=== PATIENT | male | born 1960 | race Caucasian/White ===

== ENCOUNTER 2016-12-29 02:57 | Inpatient (IN) ==
--- NOTE | 2016-12-29 03:51 | PROVIDER DOCUMENTATION ---
HPI-General Adult - General Stated Complaint: weakness Time Seen by Provider: 12/29/16 03:28 Source: patient, EMS Unable to obtain history due to:: other (gives non commital, or joking answers, or does not answer questions) Allergies/Adverse Reactions: Patient Allergies Allergy/AdvReac Type Severity Reaction Status Date / Time No Known Allergies Allergy Verified 12/29/16 04:58 Home Medications: Home Medication List Medication Instructions Recorded Confirmed Last Taken Type ATORVAstatin [Lipitor] 40 mg PO QHS 12/29/16 12/29/16 12/28/16 History Albuterol Sulfate [Proair Hfa] 1 puff INH DAILY 12/29/16 12/29/16 12/28/16 History Amlodipine Besylate 5 mg PO DAILY 12/29/16 12/29/16 12/28/16 History Glimepiride 8 mg PO DAILY 12/29/16 12/29/16 12/28/16 History Losartan [Cozaar] 100 mg PO DAILY 12/29/16 12/29/16 12/28/16 History Meloxicam 15 mg PO DAILY 12/29/16 12/29/16 12/28/16 History Metformin [Glucophage] 1,000 mg PO BID 12/29/16 12/29/16 12/28/16 History Omeprazole 20 mg PO DAILY 12/29/16 12/29/16 12/28/16 History - History of Present Illness -Gen Adult Nature of Presenting Problems: brought in by EMS, they give hx that had been seen in [facility] ED, dx with pneumonia, was D/C, now wanted to come here. Pt says that was told had a virus, was discharged. Cannot get any more info from him. Have also talked to ED @ [place]. Was seen there yest, his sats were in 80's ther, but CXR did not show pneumonia, CT head was NL, was dx with COPD flare, albuterol refilled, told to see PCP Location of Pain/Injury: reports: none Quality of Pain: reports: none Severity: reports: severe Onset/Duration: reports: unsure (pt does not answer this question) Timing: reports: still present Modifying Factors: improves with: other (unable to determine) Associated Symptoms: reports: other (does not answer questions) Recently seen or treated by another doctor?: Yes Review of Systems - Adult - REVIEW OF SYSTEMS - ADULT ROS:: unobtainable per condition Constitutional: reports: no symptoms reported Respiratory: reports: see HPI Past History - Adult - PAST MEDICAL HISTORY-ADULT Review of Records: reports: Medications Reviewed Physical Exam-General - PHYSICAL EXAM-ADULT Initial Vital Signs Reviewed: Yes - CONSTITUTIONAL General Appearance: other (awake, but seems to be altered/somulent) - EYES Eyes: PERRL/EOMI, pink conjunctivae - HEAD, EARS, NOSE, MOUTH & THROAT HENMT: moist mucous membranes, normal ENT inspection, pharynx normal - NECK Neck: supple - RESPIRATORY Respiratory: other (decreased airflow) - CARDIOVASCULAR Cardiovascular: regular rate, rhythm - GASTROINTESTINAL (ABDOMEN) Abdominal Exam: non tender, soft - MUSCULOSKELETAL Back Exam: normal inspection, no CVA tenderness, no vertebral tenderness Extremity: normal range of motion, no pedal edema - SKIN Integumentary: normal color, normal turgor, warm/dry - NEUROLOGIC Neurologic: grossly normal - PSYCHIATRIC Psych/Mental Status: other (somulent) Progress - PLAN OF CARE/RESULTS Progress/Plan/Lab Results: Orders Category Date Time Status [facility] [place]. NRS Communication Order DIRECTED Care 12/29/16 03:38 Ordered CHEST-1 VIEW [RAD] Stat Exams 12/29/16 03:38 Ordered ABG [RESP] Stat Lab 12/29/16 03:38 Ordered BLOOD CULTURE [BLDCUL] Stat Lab 12/29/16 03:38 Uncollected CBC WITH DIFF [HEME] Stat Lab 12/29/16 03:38 Uncollected COMPREHENSIVE METABOLIC PANEL [CHEM] Stat Lab 12/29/16 03:38 Uncollected ETOH [ALCOHOL BLOOD] Stat Lab 12/29/16 03:38 Uncollected LACTATE, PLASMA [CHEM] Stat Lab 12/29/16 03:38 Uncollected URINALYSIS W/POSS RFLX CULT [URINALYSIS] Stat Lab 12/29/16 03:38 Uncollected URINE DRUG SCREEN Stat Lab 12/29/16 03:38 Uncollected EKG [EKG] Stat Ther 12/29/16 03:38 Ordered Result Diagrams: 12/29/16 03:30 12/29/16 03:30 - EKG 1 EKG Interpretation (*Must complete 3 of following elements*): Normal Rate: 77 Rhythm: NSR QRS: normal [place] Interval: normal ST Wave: normal - CONSULTS/PCP/HOSPITALIST Notification #1 *Consult/PCP/Hospitalist*: Stephanie/Dr. Scott Time Discussed: 07:49 Consult Disposition: Admit - CHANGE OF SHIFT REPORT (ED Provider) Report Given and Care Transferred to:: [facility] Time of Transfer: 06:18 Departure - Departure Date of Disposition Decision: 12/29/16 Time of Disposition Decision: 07:50 DIAGNOSIS: Respiratory failure, CO2 retention Disposition: ADMITTED INPATIENT 09 Certified Medical Emergency: Emergent Condition: Serious Referrals and Follow-Ups: None,PCP [Primary Care Provider] - - Critical Care Note This patient required my direct & personal management of CC.: Yes Total Time (mins): 35 Critical Care Statement: This patient required my direct personal management to treat or rule out processes, the absence of which, could potentiallly result in sudden, clinically significant life or limb threatening deterioration.
[2016-12-29 04:00] LABS: ALLEN TEST YES; BE 7.6 mmoll (-3.0-3.0); BLOOD TYPE ARTERIAL; DRAW SITE R RADIAL; METHB 0.7 % (0.0-1.5); MODALITY PRB; O2(CT) 20.1 mL/dL (15.0-23.0); PCO2(98.6) 103 mmHg (35-45); PO2(98.6) 87 mmHg (60-100); SAMPLE BLOOD; SAO2 96.4 % (95.0-100.0); THB 15.2 g/dL (11.5-17.4)
[2016-12-29 04:05] LABS: MANUAL DIFF NEEDED? NO
[2016-12-29 04:11] LABS: BASO% 0.2 % (0.0-0.8); EOS# 0.03 X1000 (0.0-0.7); EOS% 0.3 % (0.0-10.0); HEMATOCRIT 48.2 % (42.0-52.0); HEMOGLOBIN 15.2 g/dL (14.0-18.0); IMM GRAN# 0.03 X1000 (0.0-0.04); IMM GRAN% 0.3 % (0.0-0.5); LYMPH% 24.6 % (20.5-51.1); MCH 28.1 PG (27-31); MCHC 31.5 g/dL (33-37); MCV 89.3 FL (81-99); MONO# 0.68 X1000 (0.11-0.59); MONO% 7.6 % (1.7-9.3); MPV 10.6 FL (7.4-10.4); PLT 215 X1000 (130-400)
[2016-12-29 04:35] LABS: AGAP 8; ALBUMIN 3.9 g/dL (3.5-5.0); ALKALINE PHOSPHATASE 55 U/L (32-122); BUN 13 mg/dL (8-22); CALCIUM 8.4 mg/dL (8.8-10.2); CHLORIDE 96 mmol/L (98-107); COSMO 285; GOT 12 U/L (10-34); GPT 10 U/L (10-44); POTASSIUM 4.2 mmol/L (3.5-5.1); SODIUM 140 mmol/L (136-145); TCO2 36 mmol/L (25-35); TOTAL BILIRUBIN 0.32 mg/dL (0.20-1.00); TOTAL PROTEIN 7.3 g/dL (6.3-8.3)
[2016-12-29] MEDS ORDERED: LEVAQUIN 750 MG/D5W 750 MG/150 ML IVPB IV ONE (06:27)
--- NOTE | 2016-12-29 06:45 | Diag Imaging Result Doc PS360 ---
EXAM: CHEST-1 VIEW HISTORY: SOB TECHNIQUE: Portable AP COMPARISON: None. FINDINGS: Poor inspiratory effort. The heart isn't enlarged. Mild central vascular prominence. No consolidation. No pleural effusions identified. IMPRESSION: Cardiomegaly with mild central vascular prominence. Follow-up PA and lateral recommended. Electronically signed by Eber Ayala 12/29/2016 6:43 AM
[2016-12-29 07:49] LABS: ALLEN TEST YES; BE 6.9 mmoll (-3.0-3.0); BLOOD TYPE ARTERIAL; DRAW SITE R RADIAL; METHB 1.1 % (0.0-1.5); PO2(98.6) 59 mmHg (60-100); SAMPLE BLOOD; SAO2 90.3 % (95.0-100.0); THB 15.4 g/dL (11.5-17.4); pH(98.6) 7.21 (7.35-7.45)
[2016-12-29] MEDS ORDERED: SOLU-MEDROL IV ONE (07:50)
[2016-12-29] MEDS ORDERED: PULMICORT INH ONE (07:50)
[2016-12-29] MEDS ORDERED: DUONEB (A & A) INH ONE (07:50)
[2016-12-29 07:53] LABS: URINE CULTURE NEEDED? NO; URINE MICRO REVIEW NEEDED? NO; URINE SOURCE CATH
[2016-12-29 07:56] LABS: PCO2(98.6) 98 mmHg (35-45)
[2016-12-29 07:57] LABS: BILIRUBIN URINE SMALL (NEGATIVE); BLOOD URINE NEGATIVE (NEGATIVE); COLOR YELLOW; GLUCOSE URINE 1000 mg/dL (NEGATIVE); LEUKOCYTES URINE NEGATIVE (NEGATIVE); NITRITE URINE NEGATIVE (NEGATIVE); PH URINE 5.5; PROTEIN URINE 30 mg/dL (NEGATIVE); SP GRAVITY URINE 1.028; TURBIDITY URINE CLEAR (CLEAR); UROBILINOGEN URINE 3 mg/dL (NORMAL)
[2016-12-29 07:57] LABS: MODALITY BI PAP
[2016-12-29 07:58] LABS: UR EPITHELIAL CELLS <10 /HPF (<10); URINE BACTERIA NEGATIVE /HPF; URINE RBC <10 /HPF (<10); URINE WBC <10 /HPF (<10)
[2016-12-29] MEDS ORDERED: PULMICORT ONE (08:03)
[2016-12-29 08:14] LABS: UR AMPHETAMINES MT NONE DETECTED (NONE DETECT); UR BARBITUATES MT NONE DETECTED (NONE DETECT); UR BENZODIAZ MT NONE DETECTED (NONE DETECT); UR CANNABIS MEDTOX NONE DETECTED (NONE DETECT); UR COCAINE MT NONE DETECTED (NONE DETECT); UR METHADONE MEDTOX NONE DETECTED (NONE DETECT); UR OPIATES MT NONE DETECTED (NONE DETECT); UR OXYCODONE MEDTOX NONE DETECTED (NONE DETECT); UR PCP MEDTOX NONE DETECTED (NONE DETECT)
[2016-12-29] MEDS ORDERED: ZOFRAN IV PRN (08:22)
[2016-12-29] MEDS ORDERED: TYLENOL PO PRN (08:22)
--- NOTE | 2016-12-29 08:49 | HISTORY AND PHYSICAL ---
HISTORY OF PRESENT ILLNESS: This is a 56-year-old. He actually lives in [place]. Apparently, he has been feeling weak and there was some confusion, short of breath. Went to [place] emergency room and they told him he had some fluid, a little fluid on his lungs. They did a CT of his head and it was unremarkable. He went home. This was on Friday, the day before this admission. Came early this morning. He felt like he was going to pass out. He was very weak. In the emergency room, found a CO2 above 100 and so really CO2 retention and respiratory failure. PAST MEDICAL HISTORY: 1. Long history of COPD. He quit smoking years ago. He is on 3 L nasal cannula at home for chronic hypoxia. 2. Hypertension. 3. Hyperlipidemia. 4. Diabetes mellitus type 2. 5. Gastroesophageal reflux disease. SOCIAL HISTORY: He quit drinking. He quit alcohol he states years ago. FAMILY HISTORY: Mother, cancer, not sure what type. REVIEW OF SYSTEMS: He had a BiPAP on and was working to breathe so we got most of the history from his . She did not note any fever or chills. He did not either. No chest pain. No productive cough. No gross hematuria or dysuria. No new focal neurologic changes. PHYSICAL EXAMINATION: General: Awake. He is alert. Answering questions appropriately. at the bedside. VITAL SIGNS: Pulse 88, respirations 16, blood pressure 130/82. CVP appears less than 6 cm. LUNGS: With decreased breath sounds at both bases. Otherwise moving air. No active wheezing. He does have prolonged expiratory phase, about 1.5 to 1 to inspiratory phase. ABDOMEN: Soft, nontender. Did not appreciate any organomegaly. EXTREMITIES: Trace edema in the ankles. RESPIRATORY: O2 stat at present 93%. LAB: White count 8940, hematocrit 48, platelet count 215,000. Sodium 140, potassium 4.2, chloride 96, bicarb 36, BUN 13, creatinine 0.9, calculated osmolality 285, calcium 8.4. Liver functions unremarkable. Urine drug screen was unremarkable. Urinalysis negative. ABGs: PH was 7.21, pCO2 98, PO2 was 59, O2 saturation 90%. This is on BiPAP. He is getting 60% FiO2, BiPAP set at 20/10. This is the 2nd gases. His gases showed a CO2 that was greater than 100 so this is after BiPAP was started. Chest x-ray, cardiomegaly with mild central vascular prominence. ASSESSMENT AND PLAN: 1. Chronic obstructive pulmonary disease with hypoxia and hypercarbia. We will continue BiPAP. We asked him about ventilator assistance and he says if we need to, he wants to go on a ventilator. I will move him up to CIC. We will give him some moderate normal saline, run that at about 65 mL an hour. I do not see any sign of infection at this point. We will put him on some guaifenesin 1200 mg twice a day just to maybe help with secretions. I will go ahead and put him on some Solu-Medrol as well. We will give him 60 mg of Solu-Medrol every 8 hours. We will use some bronchodilators, I think DuoNebs at present. 2. History of hypertension. We will watch his blood pressure. Continue his losartan 100 mg a day, amlodipine 5 mg a day. 3. Diabetes mellitus type 2. We will check patterned sugars. Continue his Glucophage and he takes a 1000 mg twice a day. 4. Hypercholesterolemia. Continue his Lipitor. 5. History of gastroesophageal reflux. 6. Note, I think in addition, he most likely has obstructive apnea and hypoventilation syndrome due to his size. We will ask pulmonary to assist in trying to improve his air exchange and gas exchange. cc: Michael Scott MD
[2016-12-29] MEDS ORDERED: AMARYL PO SCH (09:00)
[2016-12-29] MEDS: MUCINEX PO SCH ×2 (10:01→20:17)
[2016-12-29] MEDS: NORVASC PO SCH (10:01)
[2016-12-29] MEDS: LOVENOX SUBQ SCH (10:01)
[2016-12-29] MEDS: COZAAR PO SCH (10:02)
[2016-12-29] MEDS: ROCEPHIN 2 GM/NS 2 GM/50 ML IVPB IV SCH (10:02)
[2016-12-29] MEDS: MOBIC PO SCH (10:02)
[2016-12-29] MEDS: DUONEB (A & A) INH SCH ×4 (10:50→23:48)
[2016-12-29] MEDS: HUMULIN R SUBQ SCH ×3 (10:56→20:18)
[2016-12-29 11:37] LABS: ALLEN TEST YES; BE 4.8 mmoll (-3.0-3.0); BLOOD TYPE ARTERIAL; DRAW SITE R RADIAL; METHB 0.9 % (0.0-1.5); O2(CT) 20.6 mL/dL (15.0-23.0); PO2(98.6) 73 mmHg (60-100); SAMPLE BLOOD; SAO2 94.8 % (95.0-100.0); THB 15.8 g/dL (11.5-17.4); pH(98.6) 7.25 (7.35-7.45)
[2016-12-29 11:39] LABS: MODALITY BI PAP; PCO2(98.6) 81 mmHg (35-45)
[2016-12-29] MEDS: SOLU-MEDROL IV SCH ×2 (14:03→20:18)
--- NOTE | 2016-12-29 16:38 | CONSULTATION ---
DATE OF CONSULTATION: 12/29/2016 REFERRING PHYSICIAN: Dr. Scott. CHIEF COMPLAINT: Shortness of breath. HISTORY OF PRESENT ILLNESS: This is a 56-year-old male with a past medical history of COPD, hypertension, hyperlipidemia, diabetes, and GERD, that presented to the hospital with complaints of confusion, shortness of breath, and weakness. He was admitted for his CO2 retention and respiratory failure. His initial CO2 levels were over 100. REVIEW OF SYSTEMS: A 10-point review of systems was conducted. Pertinent noted on the HPI, otherwise noncontributory. PAST MEDICAL HISTORY: As mentioned in the HPI, otherwise noncontributory. SOCIAL HISTORY: Patient no longer drinks alcohol. He quit a year ago. No documented history of tobacco or illicit drug use. FAMILY HISTORY: Unremarkable. ALLERGIES: No known drug allergies. ACTIVE MEDICATIONS: Tylenol, Mucomyst, DuoNeb, Norvasc, Lipitor, Pulmicort, Rocephin, Lovenox, Amaryl, Mucinex, Humulin R, Cozaar, Mobic, Solu-Medrol, Zofran, Protonix. PHYSICAL EXAMINATION: Vital Signs: Blood pressure 146/92, heart rate 82, respiratory rate 15, oxygen saturation 93%. General: Awake and alert. No acute distress noted. HEENT: Normocephalic, atraumatic. PERRL. Cardiovascular: Regular rate and rhythm. S1, S2 present. Chest: Reduced entry. Abdomen: Soft, nontender. Neurologic: No focal deficits. LABS AND INVESTIGATIONS: WBC 8.94, RBC 5.4, hemoglobin 15.2, hematocrit 48.2, platelet count 215,000. Sodium 140, potassium 4.2, chloride 96, CO2 36, anion gap 8, BUN 13, creatinine 0.9, glucose is 192. Blood gas reveals a pH 7.21, pCO2 of 98, PO2 of 59, HC03 of 30, oxygen saturation 90%. Chest x-ray shows cardiomegaly. ASSESSMENT AND PLAN: This is 56-year-old male with a past medical history as mentioned in the HPI, that presented to the hospital with shortness of breath and weakness. He is admitted for his hypoxic, hypercarbic respiratory failure secondary to chronic obstructive pulmonary disease exacerbation. Continue with IV steroids, BiPAP therapy, broad-spectrum antibiotics, GI and DVT prophylaxis, pattern fingerstick, sliding scale insulin. Further recommendations pending diagnostic studies. Thank you for the courtesy of this consult. Dictated by ALLYSON Mancilla for Efren Cisneros MD cc: ALLYSON Mancilla MD
[2016-12-29] MEDS: MUCOMYST 20% INH SCH (19:46)
[2016-12-29] MEDS: PULMICORT INH SCH (19:46)
[2016-12-29] MEDS: LIPITOR PO SCH (20:18)
[2016-12-30] MEDS: SOLU-MEDROL IV SCH ×4 (03:12→20:33)
[2016-12-30] MEDS: DUONEB (A & A) INH SCH ×6 (03:49→22:49)
[2016-12-30 04:25] LABS: ALLEN TEST YES; BE 9.7 mmoll (-3.0-3.0); BLOOD TYPE ARTERIAL; DRAW SITE R RADIAL; METHB 0.9 % (0.0-1.5); O2(CT) 20.8 mL/dL (15.0-23.0); PO2(98.6) 98 mmHg (60-100); SAMPLE BLOOD; SAO2 97.3 % (95.0-100.0); THB 15.4 g/dL (11.5-17.4); pH(98.6) 7.35 (7.35-7.45)
[2016-12-30 04:31] LABS: MODALITY BI PAP; PCO2(98.6) 70 mmHg (35-45)
[2016-12-30] MEDS ORDERED: CALMOSEPTINE OINTMENT TOP PRN (04:56)
[2016-12-30 05:15] LABS: MANUAL DIFF NEEDED? NO
[2016-12-30 05:19] LABS: BASO% 0.1 % (0.0-0.8); HEMATOCRIT 46.6 % (42.0-52.0); HEMOGLOBIN 14.8 g/dL (14.0-18.0); IMM GRAN# 0.03 X1000 (0.0-0.04); IMM GRAN% 0.3 % (0.0-0.5); LYMPH# 1.24 X1000 (1.2-3.4); LYMPH% 14.3 % (20.5-51.1); MCH 27.9 PG (27-31); MCHC 31.8 g/dL (33-37); MCV 87.8 FL (81-99); MONO# 0.44 X1000 (0.11-0.59); MONO% 5.1 % (1.7-9.3); MPV 10.6 FL (7.4-10.4); NEUT% 80.2 % (42.2-75.2); PLT 233 X1000 (130-400); RBC 5.31 XMIL (4.7-6.1)
[2016-12-30 05:39] LABS: HEMOGLOBIN A1C 9.9 % (4.8-6.0)
[2016-12-30 05:42] LABS: CALCIUM 8.8 mg/dL (8.8-10.2); POTASSIUM 5.1 mmol/L (3.5-5.1); TOTAL BILIRUBIN 0.29 mg/dL (0.20-1.00); TOTAL PROTEIN 7.5 g/dL (6.3-8.3)
[2016-12-30 06:20] LABS: FREE T4 0.99 ng/dL (0.93-1.70)
[2016-12-30] MEDS: PROTONIX PO SCH (06:33)
[2016-12-30] MEDS: HUMULIN R SUBQ SCH ×4 (06:33→20:37)
--- NOTE | 2016-12-30 06:49 | EKG Report ---
Test Performed on : 12/29/2016 05:25:51 AM Test Reason : SOB Blood Pressure : / mmHG Vent. Rate : 077 BPM Atrial Rate : 077 BPM P-R Int : 152 ms QRS Dur : 100 ms QT Int : 376 ms P-R-T Axes : 019 016 019 degrees QTc Int : 425 ms Normal sinus rhythm. Normal ECG No previous ECGs available Unconfirmed Result
--- NOTE | 2016-12-30 07:12 | Diag Imaging Result Doc PS360 ---
EXAM: CHEST-PORTABLE HISTORY: short of breath TECHNIQUE: Erect AP portable at zero 555 COMMENT: The lungs are slightly better expanded than on 12/29/2016. There continues to be minimal subsegmental atelectasis in both bases. There is cardiomegaly. IMPRESSION: Minimal bibasilar atelectasis. Cardiomegaly. Electronically signed by Cesar Alegria 12/30/2016 7:10 AM
[2016-12-30] MEDS: PULMICORT INH SCH ×2 (07:30→19:19)
[2016-12-30] MEDS: MUCOMYST 20% INH SCH ×2 (07:30→19:19)
--- NOTE | 2016-12-30 08:21 | PROGRESS NOTE ---
DATE: 12/30/2016 SUBJECTIVE: Mr. Chadwick is breathing much better. He used the BiPAP through the night. OBJECTIVE: Vital signs: He remains afebrile, temp 98.6 degrees, pulse 80, respirations 17, blood pressure 139/69. Weight 354 this morning. HEENT: Pupils are equal, round. Lungs: Clear in all lung regalado. Cardiovascular: Regular rhythm and rate without murmur or S3. : Urine output 3200 mL. LAB: White count 8,650, hematocrit 46, platelet count 233,000. Sodium 137, potassium 5.1, chloride 94, BUN 24, creatinine 1.4, blood sugar 301, 265. Blood gases this morning, pH improved to 7.35, pCO2 was 70, PO2 was 98, O2 saturation 97%. Chest x-ray from this morning, minimal bibasilar atelectasis, cardiomegaly. ASSESSMENT AND PLAN: 1. This is a 56-year-old with shortness of breath, morbid obesity, suspect hypoventilation syndrome, hypercarbic respiratory failure with underlying chronic obstructive pulmonary disease and chronic obstructive pulmonary disease exacerbation. It appears to be improving. Gas exchange has definitely improved. We need to see if he needs CPAP or BiPAP at home. Ask pulmonary to assist with this. I do not see any active infection at this point. 2. Morbid obesity. Needs to pursue weight reduction, low carb diet. 3. Hypertension. Blood pressure controlled. 4. Diabetes mellitus type 2. Sugar is running a little high so make some adjustments in his insulin and try and increase his activity. cc: Michael Scott MD
[2016-12-30] MEDS: NORVASC PO SCH (08:51)
[2016-12-30] MEDS: ROCEPHIN 2 GM/NS 2 GM/50 ML IVPB IV SCH (08:51)
[2016-12-30] MEDS: MOBIC PO SCH (08:51)
[2016-12-30] MEDS: AMARYL PO SCH (08:51)
[2016-12-30] MEDS: LOVENOX SUBQ SCH (08:52)
[2016-12-30] MEDS: MUCINEX PO SCH ×2 (09:33→20:33)
[2016-12-30] MEDS: COZAAR PO SCH (09:52)
[2016-12-30] MEDS: LIPITOR PO SCH (20:33)
[2016-12-31] MEDS: DUONEB (A & A) INH SCH ×6 (02:50→22:40)
[2016-12-31] MEDS: SOLU-MEDROL IV SCH ×3 (04:34→20:38)
[2016-12-31 04:58] LABS: ALLEN TEST YES; BE 8.3 mmoll (-3.0-3.0); BLOOD TYPE ARTERIAL; DRAW SITE R RADIAL; METHB 0.9 % (0.0-1.5); O2(CT) 20.4 mL/dL (15.0-23.0); PO2(98.6) 115 mmHg (60-100); SAMPLE BLOOD; pH(98.6) 7.32 (7.35-7.45)
[2016-12-31 05:00] LABS: MODALITY BI PAP; PCO2(98.6) 73 mmHg (35-45)
[2016-12-31] MEDS: HUMULIN R SUBQ SCH ×5 (06:24→20:38)
[2016-12-31] MEDS: PROTONIX PO SCH (06:24)
[2016-12-31] MEDS: MUCOMYST 20% INH SCH ×2 (07:06→19:15)
[2016-12-31] MEDS: PULMICORT INH SCH ×2 (07:07→19:15)
[2016-12-31] MEDS: NORVASC PO SCH (08:53)
[2016-12-31] MEDS: AMARYL PO SCH (08:53)
[2016-12-31] MEDS: LOVENOX SUBQ SCH (08:54)
[2016-12-31] MEDS: COZAAR PO SCH (08:54)
[2016-12-31] MEDS: MUCINEX PO SCH ×2 (08:54→20:37)
[2016-12-31] MEDS: MOBIC PO SCH (08:54)
[2016-12-31] MEDS: ROCEPHIN 2 GM/NS 2 GM/50 ML IVPB IV SCH (08:54)
--- NOTE | 2016-12-31 09:57 | PROGRESS NOTE ---
DATE: 12/31/2016 SUBJECTIVE: Mr. Cahdwick is breathing much better. He does feel better. He did use the BiPAP during the night some. PHYSICAL EXAMINATION: Vital Signs: Temperature 98 degrees, pulse 72, respirations 18, blood pressure 115/79. HEENT: Pupils are equal and round. Lungs: Are clear anterolateral. Cardiovascular Examination: Regular rhythm and rate without murmur or S3. Abdomen: Soft. Skin: Is warm and dry. Is and Os: Urine output 440 mL. LABORATORY DATA: Blood sugar 340, 256. ASSESSMENT AND PLAN: 1. A 56-year-old with shortness of breath, morbid obesity, suspect hypoventilation syndrome, obstructive apnea, hypercarbic respiratory failure, and underlying chronic obstructive pulmonary disease exacerbation. He is on supplemental O2. His blood gases from this morning, pH of 7.32, pCO2 of 73, PO2 is 115, O2 saturation 98%. He does wear BiPAP as needed which is at 60% FiO2, 20/10. Chest x-ray from yesterday, minimal basilar atelectasis. Clinically doing much better. Continue present regimen. 2. Morbid obesity. We discussed the necessity of him losing weight, getting some weight off. 3. Hypertension. Blood pressure well controlled. 4. Osteoarthritis and back pain. He is on the Mobic 15 mg daily. 5. I have him on ceftriaxone 2 g intravenous every 24 hours. I do not see any evidence clinically of pneumonia. We will stop his Rocephin probably tomorrow. He does have atelectasis and I could not rule out under underlying infiltrate but we will stop the Rocephin tomorrow. cc: Michael Scott MD
[2016-12-31] MEDS: HUMULIN 70/30 SUBQ SCH ×2 (11:15→16:17)
[2016-12-31] MEDS: LIPITOR PO SCH (20:38)
[2017-01-01] MEDS: DUONEB (A & A) INH SCH ×6 (03:15→23:00)
[2017-01-01 05:36] LABS: ALLEN TEST YES; BE 8.9 mmoll (-3.0-3.0); BLOOD TYPE ARTERIAL; DRAW SITE R RADIAL; METHB 0.1 % (0.0-1.5); O2(CT) 19.9 mL/dL (15.0-23.0); PO2(98.6) 93 mmHg (60-100); SAMPLE BLOOD; SAO2 98.6 % (95.0-100.0); THB 14.7 g/dL (11.5-17.4); pH(98.6) 7.33 (7.35-7.45)
[2017-01-01 05:37] LABS: MODALITY BI PAP; PCO2(98.6) 72 mmHg (35-45)
[2017-01-01] MEDS: PROTONIX PO SCH (06:43)
[2017-01-01] MEDS: HUMULIN R SUBQ SCH ×4 (06:44→20:57)
[2017-01-01] MEDS: HUMULIN 70/30 SUBQ SCH ×2 (06:44→17:17)
[2017-01-01] MEDS: MUCOMYST 20% INH SCH ×2 (07:05→19:05)
[2017-01-01] MEDS: PULMICORT INH SCH ×2 (07:06→19:05)
[2017-01-01] MEDS: NORVASC PO SCH (09:13)
[2017-01-01] MEDS: MUCINEX PO SCH ×2 (09:13→20:56)
[2017-01-01] MEDS: MOBIC PO SCH (09:13)
[2017-01-01] MEDS: COZAAR PO SCH (09:13)
[2017-01-01] MEDS: AMARYL PO SCH (09:14)
[2017-01-01] MEDS: SOLU-MEDROL IV SCH ×2 (09:14→20:56)
[2017-01-01] MEDS: LOVENOX SUBQ SCH (09:16)
--- NOTE | 2017-01-01 09:26 | PROGRESS NOTE ---
DATE: 01/01/2017 SUBJECTIVE: Mr. Chadwick is feeling better, breathing better. PHYSICAL EXAMINATION: Vital Signs: Temperature 97.7 degrees, pulse 70, respirations 18, blood pressure 121/66. Lungs: Are clear in all lung regalado. Cardiovascular Examination: Regular rhythm and rate without murmur or S3. Abdomen: Soft. Skin: Is warm and dry. Is and Os: Urine output over 5 mL. LABORATORY DATA: Blood sugar 346, 189. Reviewed lab from the 12th, CBC, chemistries. New chemistries today. His blood gases this morning, pH was 7.33, pCO2 of 72, PO2 of 93, O2 saturation 98%. ASSESSMENT AND PLAN: 1. Morbidly obese, hypoventilation syndrome, underlying chronic obstructive pulmonary disease exacerbation. Dr. Cisneros following to see if he is eligible to try and pursue a BiPAP machine at home. Would like to get his CO2 60 or below before he goes home. Making improvement on this gas exchange so continue present treatment. I have decreased his steroids. 2. Morbid obesity. We have discussed this actively, importance of him losing weight, a low carbohydrate diet. 3. Hypertension. Blood pressure controlled. 4. Osteoarthritis and back pain, chronic pain. He is on Mobic. I will stop his antibiotics. 5. Diabetes mellitus. I have started a split dose insulin. I think he is taking a once a day insulin at home. We need to give him instructions on that and titrate. cc: Michael Scott MD
[2017-01-01] MEDS: LIPITOR PO SCH (20:56)
[2017-01-02] MEDS: SOLU-MEDROL IV SCH (00:48)
[2017-01-02] MEDS: DUONEB (A & A) INH SCH ×6 (02:50→23:41)
[2017-01-02 05:01] LABS: ALLEN TEST YES; BE 10.5 mmoll (-3.0-3.0); BLOOD TYPE ARTERIAL; DRAW SITE R RADIAL; METHB 0.7 % (0.0-1.5); O2(CT) 20.6 mL/dL (15.0-23.0); PO2(98.6) 114 mmHg (60-100); SAMPLE BLOOD; SAO2 98.1 % (95.0-100.0); THB 15.2 g/dL (11.5-17.4); pH(98.6) 7.34 (7.35-7.45)
[2017-01-02 05:03] LABS: MODALITY BI PAP; PCO2(98.6) 74 mmHg (35-45)
[2017-01-02] MEDS: HUMULIN 70/30 SUBQ SCH ×2 (06:17→15:38)
[2017-01-02] MEDS: HUMULIN R SUBQ SCH ×4 (06:17→21:05)
[2017-01-02] MEDS: PROTONIX PO SCH (06:17)
[2017-01-02] MEDS: PULMICORT INH SCH ×2 (07:24→19:12)
[2017-01-02] MEDS: MUCOMYST 20% INH SCH ×2 (07:24→19:12)
[2017-01-02] MEDS: MOBIC PO SCH (08:53)
[2017-01-02] MEDS: COZAAR PO SCH (08:53)
[2017-01-02] MEDS: PREDNISONE PO SCH (08:53)
[2017-01-02] MEDS: NORVASC PO SCH (08:53)
[2017-01-02] MEDS: MUCINEX PO SCH ×2 (08:53→21:04)
[2017-01-02] MEDS: LOVENOX SUBQ SCH (08:53)
[2017-01-02] MEDS: AMARYL PO SCH (08:53)
--- NOTE | 2017-01-02 15:13 | PROGRESS NOTE ---
DATE: 01/02/2017 SUBJECTIVE: The patient is awake, alert, and oriented. Answers questions appropriately. No acute event reported. Seen and examined. OBJECTIVE: Vital Signs: Blood pressure 132/66, pulse of 86, respirations 20, temperature 98.4 degrees. Sat of 94% on 4 L nasal cannula. General Appearance: Morbidly obese, white male, in no acute distress. Very talkative. HEENT: Anicteric. Clear conjunctivae. Neck supple. No JVD. No bruit. Cardiovascular: S1, S2. Normal rate and rhythm. No murmur, rubs, or gallops. Pulmonary clear to auscultation bilaterally. GI soft, nontender, nondistended. Normoactive bowel sounds. Musculoskeletal: No clubbing, cyanosis, or edema. His ABG today shows CO2 of 74. ASSESSMENT AND PLAN: This is a 56-year-old morbidly obese, white male, admitted for acute respiratory failure. 1. Acute respiratory failure. It is a combination of chronic obstructive pulmonary disease on top of his morbid obesity and hypoventilation. I discussed with Dr. Cisneros who wants his carbon dioxide at or below 60 before discharging him. This has been hanging around the 70s so far. We will continue BiPAP. 2. Morbid obesity. Education provided. 3. Diabetes, type 2. Continue 70/30 sliding scale insulin. 4. Hypertension. Continue losartan and Norvasc. 5. Gastroesophageal reflux disease. Continue Protonix number. 6. Deep vein thrombosis prophylaxis. The patient is on Lovenox. 7. Hyperlipidemia. Continue Lipitor. 8. CODE STATUS: The patient is a Full Code. His is his surrogate decision maker.
[2017-01-02] MEDS ORDERED: INSULIN PEN NEEDLES ONE (15:36)
[2017-01-02] MEDS: LIPITOR PO SCH (21:04)
[2017-01-03 02:55] LABS: ALLEN TEST YES; BE 9.2 mmoll (-3.0-3.0); BLOOD TYPE ARTERIAL; DRAW SITE R RADIAL; METHB 0.8 % (0.0-1.5); O2(CT) 21.9 mL/dL (15.0-23.0); PO2(98.6) 136 mmHg (60-100); SAMPLE BLOOD; SAO2 98.5 % (95.0-100.0); SRATE 4 BPM; pH(98.6) 7.37 (7.35-7.45)
[2017-01-03 02:56] LABS: MODALITY BI PAP; PCO2(98.6) 65 mmHg (35-45)
[2017-01-03] MEDS: DUONEB (A & A) INH SCH ×6 (03:14→23:21)
[2017-01-03] MEDS: HUMULIN 70/30 SUBQ SCH ×2 (06:25→16:00)
[2017-01-03] MEDS: HUMULIN R SUBQ SCH ×4 (06:25→21:35)
[2017-01-03] MEDS: PROTONIX PO SCH (06:26)
[2017-01-03] MEDS: PULMICORT INH SCH ×2 (07:20→20:03)
[2017-01-03] MEDS: MUCOMYST 20% INH SCH ×2 (07:20→20:03)
[2017-01-03] MEDS: LOVENOX SUBQ SCH (08:37)
[2017-01-03] MEDS: AMARYL PO SCH (08:38)
[2017-01-03] MEDS: MOBIC PO SCH (08:40)
[2017-01-03] MEDS: COZAAR PO SCH (08:40)
[2017-01-03] MEDS: NORVASC PO SCH (08:40)
[2017-01-03] MEDS: PREDNISONE PO SCH (08:40)
[2017-01-03] MEDS: MUCINEX PO SCH ×2 (08:40→21:35)
--- NOTE | 2017-01-03 11:10 | PROGRESS NOTE ---
DATE: 01/03/2017 SUBJECTIVE: The patient is sitting up in the chair comfortably. No fever, no chills. No nausea, vomiting, or diarrhea. Very talkative. OBJECTIVE: Vital Signs: Blood pressure 131/48, pulse of 85, respiration 18, temperature 97.6 degrees, saturations of 93% on 4 L nasal cannula. General Appearance: Morbidly obese white male in no acute distress. HEENT: Anicteric. Clear conjunctivae. Neck: Supple. No JVD. No bruit. Cardiovascular: S1, S2. Normal rate and rhythm. No murmur, rubs, or gallops. Pulmonary: Clear to auscultation bilaterally. GI: Soft, nontender, nondistended. Normoactive bowel sounds musculoskeletal no clubbing, cyanosis, or edema. LABORATORY: His carbon dioxide today is 65. ASSESSMENT AND PLAN: This is a 56-year-old white male, admitted to the hospital for acute respiratory failure. 1. Acute respiratory failure secondary to hypoxia and hypercapnia. The patient is on BiPAP whenever he is asleep. His carbon dioxide is improving. Pulmonology is following. Discussed with Dr. Cisneros yesterday who agrees for the patient to go home if his carbon dioxide less than 60. 2. Diabetes type 2. We will continue 70/[address] her on some oral Amaryl. 3. Hypertension placed on Norvasc and losartan. 4. Hyperlipidemia, continue Lipitor. 5. He has history of chronic obstructive pulmonary disease in acute exacerbation. The patient is still on steroids; Pulmicort nebulizer. Seemed to be doing well. We will continue to monitor the patient in house. 6. Deep vein thrombosis prophylaxis. Patient on Lovenox. 7. Morbid obesity. Education was provided. CODE STATUS: The patient is a full code.
[2017-01-03] MEDS: LIPITOR PO SCH (21:35)
[2017-01-04] MEDS: DUONEB (A & A) INH SCH ×6 (03:36→23:08)
[2017-01-04 04:44] LABS: ALLEN TEST YES; BE 12.6 mmoll (-3.0-3.0); BLOOD TYPE ARTERIAL; DRAW SITE R RADIAL; METHB 0.9 % (0.0-1.5); PO2(98.6) 54 mmHg (60-100); SAMPLE BLOOD; SAO2 90.9 % (95.0-100.0); THB 15.3 g/dL (11.5-17.4); pH(98.6) 7.41 (7.35-7.45)
[2017-01-04 04:47] LABS: MODALITY CANNULA; PCO2(98.6) 64 mmHg (35-45)
[2017-01-04] MEDS: HUMULIN 70/30 SUBQ SCH ×2 (06:51→16:49)
[2017-01-04] MEDS: HUMULIN R SUBQ SCH ×4 (06:51→22:34)
[2017-01-04] MEDS: PROTONIX PO SCH (06:51)
[2017-01-04 07:39] LABS: MANUAL DIFF NEEDED? NO
[2017-01-04 07:44] LABS: BASO% 0.2 % (0.0-0.8); EOS# 0.22 X1000 (0.0-0.7); EOS% 2.1 % (0.0-10.0); HEMATOCRIT 45.2 % (42.0-52.0); IMM GRAN# 0.03 X1000 (0.0-0.04); IMM GRAN% 0.3 % (0.0-0.5); LYMPH% 25.5 % (20.5-51.1); MCH 28.2 PG (27-31); MCHC 33.2 g/dL (33-37); MONO# 1.19 X1000 (0.11-0.59); MONO% 11.2 % (1.7-9.3); MPV 10.7 FL (7.4-10.4); NEUT% 60.7 % (42.2-75.2); PLT 268 X1000 (130-400); RBC 5.32 XMIL (4.7-6.1)
[2017-01-04] MEDS: PULMICORT INH SCH ×2 (07:45→19:45)
[2017-01-04] MEDS: MUCOMYST 20% INH SCH ×2 (07:45→19:45)
[2017-01-04 08:09] LABS: AGAP 10; BUN 13 mg/dL (8-22); CHLORIDE 95 mmol/L (98-107); COSMO 283; SODIUM 139 mmol/L (136-145); TCO2 34 mmol/L (25-35)
[2017-01-04] MEDS: COZAAR PO SCH (09:05)
[2017-01-04] MEDS: NORVASC PO SCH (09:05)
[2017-01-04] MEDS: MUCINEX PO SCH ×2 (09:05→20:30)
[2017-01-04] MEDS: AMARYL PO SCH (09:05)
[2017-01-04] MEDS: PREDNISONE PO SCH (09:05)
[2017-01-04] MEDS: MOBIC PO SCH (09:05)
[2017-01-04] MEDS: LOVENOX SUBQ SCH (09:05)
--- NOTE | 2017-01-04 11:53 | PROGRESS NOTE ---
DATE: 01/04/2017 SUBJECTIVE: The patient is feeling well. He wants to go home. No fever. No chills. No nausea, vomiting, or diarrhea. OBJECTIVE: Vital Signs: Blood pressure 153/63, pulse of 71, respirations 19, temperature 97.9 degrees, saturation of 92% on 4 L. General Appearance: Morbidly obese, white male, in no acute distress. Wants to go home. HEENT: Anicteric. Clear conjunctivae. Neck supple. No JVD. No bruit. Cardiovascular: S1, S2. Normal rate and rhythm. No murmur, rubs, or gallops. Pulmonary: Clear to auscultation bilaterally. GI: Soft, nontender, nondistended. Normoactive bowel sounds. Musculoskeletal: No clubbing, cyanosis, or edema. LABORATORY: White count 10.60, hemoglobin 15.0, hematocrit of 45.2, platelets 268,000. Chemistry: Sodium 139, potassium 4.0, chloride 95, bicarb 34. BUN 13, creatinine 0.7, glucose of 194. Blood gases: CO2 today is 64. ASSESSMENT AND PLAN: This is a 56-year-old white male admitted to the hospital for acute respiratory failure due to hypercapnia and hypoventilation. 1. Acute respiratory failure. Dr. Cisneros wants his carbon dioxide less than 60 before discharging him. We are trying to work to get the patient a BiPAP if possible. It is going to be Friday before we know anything about his BiPAP or status. 2. Diabetes type 2. Continue 70/30 insulin and sliding scale. The patient also is on Amaryl. 3. Hypertension. Continue on Norvasc and losartan. 4. Hyperlipidemia. Continue Lipitor. 5. Deep venous thrombosis prophylaxis, on Lovenox. 6. CODE STATUS: The patient is a FULL CODE
[2017-01-04] MEDS: LIPITOR PO SCH (20:30)
[2017-01-05] MEDS: DUONEB (A & A) INH SCH ×2 (04:05→07:20)
[2017-01-05 05:25] VITALS: BP 147/76
[2017-01-05] MEDS: PROTONIX PO SCH (06:07)
[2017-01-05] MEDS: HUMULIN 70/30 SUBQ SCH (06:07)
[2017-01-05] MEDS: HUMULIN R SUBQ SCH ×2 (06:09→11:30)
[2017-01-05 06:51] LABS: MANUAL DIFF NEEDED? NO
[2017-01-05 06:59] LABS: BASO% 0.1 % (0.0-0.8); EOS# 0.22 X1000 (0.0-0.7); EOS% 2.2 % (0.0-10.0); HEMATOCRIT 43.9 % (42.0-52.0); HEMOGLOBIN 14.4 g/dL (14.0-18.0); IMM GRAN# 0.04 X1000 (0.0-0.04); IMM GRAN% 0.4 % (0.0-0.5); LYMPH# 2.68 X1000 (1.2-3.4); MCH 28.1 PG (27-31); MCHC 32.8 g/dL (33-37); MCV 85.6 FL (81-99); MONO# 1.12 X1000 (0.11-0.59); MONO% 11.3 % (1.7-9.3); MPV 10.5 FL (7.4-10.4); PLT 270 X1000 (130-400); RBC 5.13 XMIL (4.7-6.1)
[2017-01-05] MEDS: MUCOMYST 20% INH SCH (07:20)
[2017-01-05] MEDS: PULMICORT INH SCH (07:21)
[2017-01-05 07:38] LABS: AGAP 11; BUN 15 mg/dL (8-22); CALCIUM 8.9 mg/dL (8.8-10.2); CHLORIDE 95 mmol/L (98-107); COSMO 286; POTASSIUM 4.3 mmol/L (3.5-5.1); SODIUM 139 mmol/L (136-145); TCO2 33 mmol/L (25-35)
[2017-01-05 08:30] LABS: ALLEN TEST YES; BE 12.1 mmoll (-3.0-3.0); BLOOD TYPE ARTERIAL; DRAW SITE R RADIAL; METHB 0.7 % (0.0-1.5); O2(CT) 19.4 mL/dL (15.0-23.0); PO2(98.6) 57 mmHg (60-100); SAMPLE BLOOD; SAO2 91.9 % (95.0-100.0); THB 15.4 g/dL (11.5-17.4); pH(98.6) 7.42 (7.35-7.45)
[2017-01-05 08:31] LABS: MODALITY CANNULA
[2017-01-05 08:33] LABS: PCO2(98.6) 61 mmHg (35-45)
[2017-01-05] MEDS: LOVENOX SUBQ SCH (09:17)
[2017-01-05] MEDS: PREDNISONE PO SCH (09:18)
[2017-01-05] MEDS: AMARYL PO SCH (09:18)
[2017-01-05] MEDS: COZAAR PO SCH (09:18)
[2017-01-05] MEDS: NORVASC PO SCH (09:18)
[2017-01-05] MEDS: MOBIC PO SCH (09:18)
[2017-01-05] MEDS: MUCINEX PO SCH (09:19)
--- NOTE | 2017-01-06 04:16 | DISCHARGE SUMMARY ---
ADMISSION DATE: 12/29/2016 DISCHARGE DATE: 01/05/2017 PRIMARY CARE PHYSICIAN: Not listed. CONSTRUCTION REPRESENTATIVE: Dr. Cisneros. DISCHARGE DIAGNOSES: 1. Acute respiratory failure secondary to hypercapnia, chronic obstructive pulmonary disease, and hypoventilation. 2. Chronic obstructive pulmonary disease. 3. Diabetes type 2. 4. Hypertension. 5. Morbid obesity. DISCHARGE MEDICATIONS: 1. Omeprazole 20 mg p.o. b.i.d. 2. Glucophage 1000 mg b.i.d. 3. Meloxicam 50 mg p.o. daily. 4. Cozaar 100 mg p.o. daily. 5. Amaryl 8 mg p.o. daily. 6. Norvasc 5 mg p.o. daily. 7. Albuterol 1 puff daily. 8. Lipitor 40 mg p.o. at bedtime. 9. Medrol Dosepak 1 pack to take as directed. 10. Insulin 70/30 twice a day. 11. Pulmicort 0.5 mg b.i.d. 12. Home oxygen at 2 L per minute while he is asleep. CONSULTATIONS: Pulmonology was consulted. Dr. Cisneros had been seeing the patient and advised to let the patient go when his CO2 gets in the low 60s or less. SIGNIFICANT LABORATORY AND IMAGING: At discharge, his white count was 9.9, hemoglobin 14.4, hematocrit of 43.9, platelets of 270,000. Chemistry: Sodium 139, potassium 4.3, chloride 95, bicarb 33, BUN 15, creatinine 0.9. His ABG with a pH of 7.42, CO2 of 61. HOSPITAL COURSE: The patient is a 56-year-old, white male, morbidly obese, admitted to the hospital for shortness of breath and some confusion. The patient was found to have elevated carbon dioxide on ABG. The patient was transferred from [facility] to our hospital for pulmonology consult and coverage. The patient is on home oxygen, 3 L at home due to chronic hypoxia. The patient had quit smoking years ago but that had COPD and occasionally he would require hospitalizations because of the COPD exacerbation causing him to retain his carbon dioxide causing confusion. The patient was admitted to our service. We placed him on BiPAP in the CICU for the 1st week. If the patient continues to do well, we will transfer the patient to the floor. We continued to monitor his ABG while he is on BiPAP. His carbon dioxide continued to improve and his oxygen remained the same. He is known to have hypoxia and on 3 L of oxygen at home. We will continue him on 3 L of oxygen at home. He does not need any prescription for oxygen since he has had it. His cultures have remained negative while he was in the hospital. Chest x-ray on admission just showed minimal basilar atelectasis. No consolidations. We have treated the patient as if he was having acute COPD exacerbation with steroid which he seems to be improving. We did not give him any antibiotics because there was no evidence of infections. The patient has been ambulating around without any difficulty. He has oxygen saturation of 96% on 3 L nasal cannula at discharge. PHYSICAL EXAMINATION: Vital Signs: Blood pressure 147/76, pulse of 80, respirations 19, temperature 98.1 degrees. General Appearance: Morbidly obese, white male, in no acute distress. AAO x3. Neck: Supple. No JVD. No bruit. Cardiovascular: S1 and S2. Normal rate and rhythm. No murmur, rubs, or gallops. Pulmonary: Clear to auscultation bilaterally. GI: Soft, nontender, nondistended. Normoactive bowel sounds. Musculoskeletal: No clubbing, cyanosis, or edema. PLAN: We will discharge the patient home. CONDITION: Stable and improving. ACTIVITY: As tolerated. FOLLOWUP: The patient needs to follow up with his PCP in 1-2 weeks. Total time discharging this patient is 35 minutes.
== END 2017-01-05 13:48 | disposition home or self-care (01) ==
LOC: ED 02:57 → SUATTDRO 08:36 → 3S 08:36 → 3N 01-03 14:39
PROVIDERS: ATTEND Internal Medicine

== ENCOUNTER 2019-08-28 16:43 | Inpatient (IN) ==
[2019-08-28] MEDS ORDERED: ASPIRIN PO ONE (17:01)
--- NOTE | 2019-08-28 17:02 | EKG Report ---
Test Performed on : 08/28/2019 4:51:11 PM Test Reason : CP,SOB Blood Pressure : / mmHG Vent. Rate : 088 BPM Atrial Rate : 088 BPM P-R Int : 138 ms QRS Dur : 098 ms QT Int : 362 ms P-R-T Axes : 003 044 047 degrees QTc Int : 438 ms Normal sinus rhythm. Normal ECG When compared with ECG of 12-NOV-2018 10:53, No significant change was found Unconfirmed Result
--- NOTE | 2019-08-28 17:24 | PROVIDER DOCUMENTATION ---
HPI-Chest Pain - General Chief Complaint: Shortness of Breath Stated Complaint: CP , SOB Time Seen by Provider: 08/28/19 16:51 Source: patient Allergies/Adverse Reactions: Patient Allergies Allergy/AdvReac Type Severity Reaction Status Date / Time No Known Allergies Allergy Verified 02/28/18 06:24 Home Medications: Home Medication List Medication Instructions Recorded Confirmed Last Taken Type ATORVAstatin [Lipitor] 40 mg PO QHS 12/29/16 11/09/17 11/07/17 21:00 History Albuterol Sulfate [Proair Hfa] 1 puff INH DAILY 12/29/16 11/09/17 11/08/17 09:00 History Amlodipine Besylate 5 mg PO DAILY 12/29/16 11/09/17 11/08/17 09:00 History Glimepiride 8 mg PO DAILY 12/29/16 11/09/17 11/08/17 09:00 History Losartan [Cozaar] 100 mg PO DAILY 12/29/16 11/09/17 11/08/17 09:00 History Metformin [Glucophage] 1,000 mg PO BID 12/29/16 11/09/17 11/08/17 09:00 History Omeprazole 20 mg PO DAILY 12/29/16 11/12/18 11/08/17 09:00 History Furosemide [Lasix] 40 mg PO DAILY PRN 11/09/17 11/09/17 11/08/17 09:00 History Albuterol 2.5MG/Ipratrop 0.5MG 3 ml INH Q4H PRN PRN neb 11/24/17 Unknown Rx [Duoneb (A & A)] Insulin Humulin 70/30 [Humulin 45 unit SUBQ QHS insuln.pen 11/24/17 Unknown Rx 70/30] Insulin Humulin 70/30 [Humulin 70 unit SUBQ QAM insuln.pen 11/24/17 Unknown Rx 70/30] Levofloxacin [Levaquin] 500 mg PO DAILY #7 tab 11/24/17 Unknown Rx Prednisone 40 mg PO DAILY 5 Days tab 02/28/18 Unknown Rx - History of Present Illness-CP Nature of Presenting Problem: 59 year old male pmh significant for chronic respiratory failure and SCHF presenting to the ED c/o intermittent substernal chest pain a/w SOB that began yesterday and is worsened with exertion and made better with rest. The patient is normally on 3L [place] O2 at home. Review of Systems - Adult - REVIEW OF SYSTEMS - ADULT Constitutional: reports: fatique Eyes: reports: no symptoms reported Ears, Nose, Mouth & Throat: reports: no symptoms reported Cardiovascular: reports: edema (lower extremities), poor circulation, PND Respiratory: reports: chronic cough, dyspnea on exertion, shortness of breath Gastrointestinal: reports: no symptoms reported Genitourinary: reports: no symptoms reported Musculoskeletal: reports: muscle aches Integumentary: reports: no symptoms reported Neurological: reports: no symptoms reported Psychiatric: reports: no symptoms reported Endocrine: reports: no symptoms reported Hematologic/Lymphatic: reports: no symptoms reported Allergic/Immunologic: reports: no symptoms reported All Other Systems: Reviewed and Negative Past History - Adult - PAST MEDICAL HISTORY-ADULT Review of Records: reports: Old Records Reviewed, Nursing Assessment Review, Medications Reviewed, Social history reviewed & non-contributory. Cardiovascular: reports: CHF, HTN Respiratory: reports: asthma, COPD Endocrine/Immune: reports: Diabetes - PRIOR SURGERIES/PROCEDURES Surgical/Procedure History: reports: none - IMMUNIZATION STATUS Childhood Immunizations: See Nurse Assessment Flu Vaccine: See Nurse Assessment - FAMILY HISTORY Family History: reviewed, not pertinent - SOCIAL HISTORY Smoking: non-smoker Substance Use: none/never Alcohol Use Frequency: occasionally Physical Exam-General - PHYSICAL EXAM-ADULT Initial Vital Signs Reviewed: Yes (hypoxemia) - CONSTITUTIONAL General Appearance: alert, moderate distress - RESPIRATORY Respiratory: chest non-tender, wheezing (bibasilar), prolonged expiration (decreased breath sounds likely secondary to body habitus.). negative: crackles - CARDIOVASCULAR Cardiovascular: regular rate, rhythm, no murmur. negative: no edema (2+ pitting edema bilaterally) - GASTROINTESTINAL (ABDOMEN) Abdominal Exam: non tender, soft - MUSCULOSKELETAL Extremity: swelling, tenderness (bilateral LE's), other (2+ pretibial edema bilaterally) - SKIN Integumentary: normal color, warm/dry - NEUROLOGIC Neurologic: grossly normal - PSYCHIATRIC Psych/Mental Status: normal mood/affect, oriented x 3 - HEART Score HEART Score: History: Moderately Suspicious HEART Score: ECG: Non-Specific Repolarization Disturbance/LBBB/PM HEART Score: Age: 45-65 Years HEART Score: Risk Factors for Atherosclerotic Disease: > or = 3 Risk Factors or History of Atherosclerotic Disease Progress - PLAN OF CARE/RESULTS Progress/Plan/Lab Results: Vital Signs - 8 hr 08/28/19 16:51 08/28/19 17:40 08/28/19 18:21 Temperature 98.2 F Pulse Rate 85 78 99 H Respiratory Rate 14 16 14 Blood Pressure 159/72 123/80 O2 Sat by Pulse Oximetry 88 L 92 L 84 L Laboratory Results - last 24 hr 08/28/19 08/28/19 08/28/19 18:22 18:22 18:22 WBC 10.21 RBC 4.56 L Hgb 12.2 L Hct 41.1 L MCV 90.1 MCH 26.8 L MCHC 29.7 L RDW Std Deviation 14.3 Plt Count 248 MPV 10.2 Immature Gran % (Auto) 0.2 Neut % (Auto) 54.7 Lymph % (Auto) 32.1 [place] % (Auto) 10.7 H Eos % (Auto) 2.1 Baso % (Auto) 0.2 Immature Gran # (Auto) 0.02 Neut # (Auto) 5.59 Lymph # (Auto) 3.28 [place]pine # (Auto) 1.09 H Eos # (Auto) 0.21 Baso # (Auto) 0.02 PT INR PTT (Actin FS) Sodium 144 Potassium 4.9 Chloride 97 L Carbon Dioxide 38 H Anion Gap 9 BUN 15 Creatinine 0.9 Estimated GFR/1.73 m2 > 60 BUN/Creatinine Ratio 17 Glucose 144 H Calculated Osmolality 290 Calcium 9.4 Total Bilirubin 0.43 AST 15 ALT 11 Alkaline Phosphatase 61 Creatine Kinase 107 Troponin T High Sens Eaa-O-Efepgsdiurp Pept 278 H Total Protein 7.2 Albumin 3.8 Globulin 3.4 Albumin/Globulin Ratio 1.1 08/28/19 08/28/19 18:22 18:22 WBC RBC Hgb Hct MCV MCH MCHC RDW Std Deviation Plt Count MPV Immature Gran % (Auto) Neut % (Auto) Lymph % (Auto) [place] % (Auto) Eos % (Auto) Baso % (Auto) Immature Gran # (Auto) Neut # (Auto) Lymph # (Auto) [place] # (Auto) Eos # (Auto) Baso # (Auto) PT 13.5 INR 1.02 PTT (Actin FS) 32.1 Sodium Potassium Chloride Carbon Dioxide Anion Gap BUN Creatinine Estimated GFR/1.73 m2 BUN/Creatinine Ratio Glucose Calculated Osmolality Calcium Total Bilirubin AST ALT Alkaline Phosphatase Creatine Kinase Troponin T High Sens 63 H Zoi-T-Vckhbiybdss Pept Total Protein Albumin Globulin Albumin/Globulin Ratio Orders Category Date Time Status Cardiac Monitoring DIRECTED Care 08/28/19 17:01 Active Oxygen Therapy- ED Nursing DIRECTED Care 08/28/19 17:01 Active Saline Loc NOW Care 08/28/19 17:01 Active CHEST-1 VIEW [RAD] Stat Exams 08/28/19 17:03 Completed ABG [RESP] Stat Lab 08/28/19 20:26 Ordered CBC WITH ELECTRONIC DIFF [HEME] Stat Lab 08/28/19 18:22 Completed CK PROFILE [SP CHEM] Stat Lab 08/28/19 18:22 Completed COMPREHENSIVE METABOLIC PANEL [CHEM] Stat Lab 08/28/19 18:22 Completed PRO B-NATRIURETIC PEPTIDE Stat Lab 08/28/19 18:22 Completed PROTIME WITH INR [COAG] Stat Lab 08/28/19 18:22 Completed PTT [COAG] Stat Lab 08/28/19 18:22 Completed TROPONIN T HIGH SENSITIVITY Stat Lab 08/28/19 18:22 Completed Albuterol 2.5MG/Ipratrop 0.5MG [Duoneb (A & A)] Med 08/28/19 17:26 Discontinued 3 ml INH NOW ONE Aspirin Med 08/28/19 17:01 Discontinued 325 mg PO NOW ONE Furosemide [Lasix] Med 08/28/19 17:26 Discontinued 60 mg IV NOW ONE Methylprednisolone Sod Succ [Solu-Medrol] Med 08/28/19 17:25 Discontinued 125 mg IV NOW ONE CP/SOB/Palp >45 yrs of Age Stat Oth 08/28/19 17:01 Ordered EKG [EKG] Stat Ther 08/28/19 16:58 Draft Patient states he is still feeling short of breath after 3 duonebulizer treatments, 125mg solumedrol, and 60mg of lasix. He is saturating at 84% on 4L [place] of supplemental O2. Result Diagrams: 08/28/19 18:22 08/28/19 18:22 - EKG 1 Time of EKG reading by physician:: 16:53 EKG Read and Signed by:: Ish Stevens EKG Interpretation (*Must complete 3 of following elements*): Normal Rate: 88 (PVC's) [place]: normal QRS: normal IN Interval: normal ST Wave: normal Prior EKG Comparison: no prior EKG - XRAY 1 XRAY Study: Chest Impression: Abnormal (EXAM: CHEST-1 VIEW HISTORY: Dyspnea TECHNIQUE: Single view COMPARISON: 11/12/2018 FINDINGS: The lungs are well expanded. The heart is enlarged. The vessels are not distended. There are no infiltrates. No effusion identified. Scarring in the lung bases. IMPRESSION: Mild cardiomegaly. Electronically signed by Eber Ayala 08/28/2019 5:33 PM 08/28/19 173 Interpreting Physician: Eber Ayala MD Dictated Date/Time: 08/28/19 173 cc: Ish Stevens DO; Rosetta Richards) - CONSULTS/PCP/HOSPITALIST Notification #1 *Consult/PCP/Hospitalist*: Dr. Clark Time Discussed: 20:28 (Accepted) Reason/Comments: Exacerbation of chronic CHF, Hypoxemia, Dyspnea. Consult Disposition: Will see in ED Departure - Departure Date of Disposition Decision: 08/28/19 Time of Disposition Decision: 19:57 (Admit inpatient) DIAGNOSIS: Hypoxemia Acute exacerbation of CHF (congestive heart failure) Qualifiers: Heart failure type: combined systolic and diastolic Qualified Code(s): I50.43 - Acute on chronic combined systolic (congestive) and diastolic (congestive) heart failure Dyspnea Qualifiers: Dyspnea type: dyspnea on exertion Qualified Code(s): R06.09 - Other forms of dyspnea Chronic respiratory failure Qualifiers: Respiratory failure complication: hypoxia and hypercapnia Qualified Code(s): J96.11 - Chronic respiratory failure with hypoxia Disposition: ADMITTED INPATIENT 09 Certified Medical Emergency: Emergent Condition: Fair Referrals and Follow-Ups: Rosetta Richards [NON-STAFF PROVIDER] - - Critical Care Note This patient required my direct & personal management of CC.: No Attestation - Physician/ NUSRAT Attestation Patient care was provided by Advanced Practice Provider:: No The physician spent face to face time with patient:: Yes Advanced Practice Provider documentation review:: Supervising physician onsite and consulted in the evaluation and care of this patient. The physician did have a face to face encounter with the patient.
[2019-08-28] MEDS ORDERED: SOLU-MEDROL IV ONE (17:25)
[2019-08-28] MEDS ORDERED: LASIX IV ONE (17:26)
[2019-08-28] MEDS ORDERED: DUONEB (A & A) INH ONE (17:26)
--- NOTE | 2019-08-28 17:35 | Diag Imaging Result Doc PS360 ---
EXAM: CHEST-1 VIEW HISTORY: Dyspnea TECHNIQUE: Single view COMPARISON: 11/12/2018 FINDINGS: The lungs are well expanded. The heart is enlarged. The vessels are not distended. There are no infiltrates. No effusion identified. Scarring in the lung bases. IMPRESSION: Mild cardiomegaly. Electronically signed by Eber Ayala 08/28/2019 5:33 PM
[2019-08-28 18:33] LABS: BASO# 0.02 X1000 (0.0-0.2); BASO% 0.2 % (0.0-0.8); EOS# 0.21 X1000 (0.0-0.7); EOS% 2.1 % (0.0-10.0); HEMATOCRIT 41.1 % (42.0-52.0); HEMOGLOBIN 12.2 g/dL (14.0-18.0); IMM GRAN# 0.02 X1000 (0.0-0.04); IMM GRAN% 0.2 % (0.0-0.5); LYMPH# 3.28 X1000 (1.2-3.4); LYMPH% 32.1 % (20.5-51.1); MCH 26.8 PG (27-31); MCHC 29.7 g/dL (33-37); MCV 90.1 FL (81-99); MONO# 1.09 X1000 (0.11-0.59); MONO% 10.7 % (1.7-9.3); MPV 10.2 FL (7.4-10.4); NEUT# 5.59 X1000 (1.4-6.5); NEUT% 54.7 % (42.2-75.2); PLT 248 X1000 (130-400); RBC 4.56 XMIL (4.7-6.1); RDW 14.3 % (11.5-14.5); WBC 10.21 X1000 (4.8-10.8)
[2019-08-28 18:41] LABS: INR 1.02; PROTIME 13.5 Seconds (11.0-16.0)
[2019-08-28 18:42] LABS: PTT 32.1 Seconds (22.3-41.8)
[2019-08-28 19:07] LABS: AGAP 9; ALB/GLOB RATIO 1.1; ALBUMIN 3.8 g/dL (3.5-5.0); ALKALINE PHOSPHATASE 61 U/L (32-122); BUN 15 mg/dL (8-22); CALCIUM 9.4 mg/dL (8.8-10.2); CHLORIDE 97 mmol/L (98-107); CK PROFILE 107 U/L (24-204); COSMO 290; CREATININE 0.9 mg/dL (0.7-1.2); ESTIMATED GFR > 60; GLUCOSE 144 mg/dL (70-104); GOT 15 U/L (10-34); GPT 11 U/L (10-44); POTASSIUM 4.9 mmol/L (3.5-5.1); SODIUM 144 mmol/L (136-145); TCO2 38 mmol/L (25-35); TOTAL BILIRUBIN 0.43 mg/dL (0.20-1.00); TOTAL PROTEIN 7.2 g/dL (6.3-8.3)
[2019-08-28 20:58] LABS: ALLEN TEST YES; BE 15.6 mmoll (-3.0-3.0); BLOOD TYPE ARTERIAL; HCO3-(ACT) 36.7 mmoll (20.0-26.0); METHB 0.7 % (0.0-1.5); O2(CT) 15.4 mL/dL (15.0-23.0); SAMPLE BLOOD; THB 13.4 g/dL (11.5-17.4); pH(98.6) 7.41 (7.35-7.45)
[2019-08-28 21:00] LABS: MODALITY CANNULA
[2019-08-28 21:05] LABS: PCO2(98.6) 69 mmHg (35-45); PO2(98.6) 45 mmHg (60-100)
[2019-08-28 21:06] LABS: O2HB 81.8 % (95.0-99.0)
[2019-08-28] MEDS ORDERED: ZOFRAN IV PRN (23:21)
[2019-08-28] MEDS ORDERED: LANTUS INSULIN SUBQ ONE (23:21)
[2019-08-28] MEDS ORDERED: TYLENOL PO PRN (23:21)
--- NOTE | 2019-08-28 23:22 | HISTORY AND PHYSICAL ---
PRIMARY CARE PHYSICIAN: In [place], [place], cannot recall the name. REASON FOR ADMISSION: Chest pain today with shortness of breath for the last 2 days. HISTORY OF PRESENT ILLNESS: Mr. Chadwick is a 59-year-old, white male, with history of COPD, on home O2, presumed diastolic heart failure, sleep apnea, hypertensive heart disease, type 2 diabetes, who presents to the hospital primarily because of retrosternal dull sharp pain, nonradiating, and additional anginal equivalent. He said he had just walked to his car and came back when the pain came on. He was brought in by the ambulance and by the time he got to the ER, his pain had spontaneously resolved. He also complains of 2 days history of shortness of breath with exertion, and his noticed that his feet have become more swollen. He tends to sleep mainly in the recliner, but denies any orthopnea or PND. He also has worsening cough which is dry. No fever, no chills, no close contacts. No change in bowel habits. No complaints. On arrival to the hospital, his O2 saturation was in the low 80s MEDICATIONS Duoneb q.6 p.r.n., Amlodipine 5mg daily, Amaryl 8mg daily, Metformin 1000mg bid, Albuterol MDI PRN, Cozaar 100mg daily, 70/30 insulin dose unknown, but is taking twice daily. SURGICAL HISTORY: None. FAMILY HISTORY: Notable for heart disease in his mother, lung cancer in his brother, and breast cancer in his mother. SOCIAL HISTORY: He stopped smoking 30 years ago. No active drug use. , lives with . LABORATORY AND DIAGNOSTIC DATA: Chest film shows cardiomegaly, although is a poorly penetrated chest film, it shows increased vascular markings. White count 10,000, hemoglobin and hematocrit 12 and 41, platelets 248,000. BUN 15, creatinine 0.9, glucose 144. Troponin 63. ProBNP 278. PT/PTT normal. EKG reviewed by me, shows a lot of artifact, but normal sinus rhythm with normal QRS interval. No inverted T-waves. No ST-T wave depression. Normal voltage criteria. PHYSICAL EXAMINATION: VITAL SIGNS: Blood pressure is 123/80, heart rate is 99, respirations 14, temperature is 98.2 degrees. He is 84% O2 saturation on 4 L. GENERAL: Morbidly obese, white male, not in acute distress. He is alert and oriented to person and time. Normal mood and affect. HEENT: Head is normocephalic, atraumatic. Eyes, PERRLA, EOMI. He is anicteric, not pale. 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 No exudates or erythema. He has mild central cyanosis. NECK: Short and thick. No JVD or carotid bruit appreciated. CHEST: Decreased entry in the bases with a few bibasilar crepitations and a few scattered rhonchi. CARDIOVASCULAR: First and second heart sounds heard. No gallops or rubs. Rhythm is regular. ABDOMEN: Protuberant and soft. HSM negative. Bowel sounds normal. RECTAL: Deferred at this time. EXTREMITIES: Patient has 2+ pitting edema up to the knees. Distal pulse volumes normal in all extremities, except distal lower extremities with decreased pulses. No peripheral cyanosis noted. No clubbing. NEUROLOGIC: The patient has noticeable weakness of his right upper extremity. Cannot fully abduct his arms above 90 degrees. A little pain when he tries to do so. 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 His power on his right upper extremity is rated about 3- 1/2 over 5. There are no focal deficits elsewhere. SKIN: Intact. No breakdown, lesion, erythema. MUSCULOSKELETAL: There is no joint swelling in the wrist, elbow, or shoulders. ASSESSMENT: 1. Acute diastolic heart failure. 2. Hypertensive heart disease. 3. Type 2 diabetes. 4. Obstructive sleep apnea. 5. Morbid obesity. 6. Chronic chronic obstructive pulmonary disease, on O2 support. 7. Possible right adhesive capsulitis. PLAN: Patient will be admitted. Aggressive diuresis as required. Echo to be done to estimate patient's LV function, which will possibly require modification in his home medications if depressed. The patient will benefit from repeat sleep study. This probably is having impact in his overall cardiorespiratory status. The patient will continue aspirin for chest pain. We will also do serial cardiac enzymes, and I will put him on nitroglycerin paste for CHF and for chest pain. Consult Cardiology to see patient for the modification of his medications and status. Patient has weakness in his right upper extremity, which appears to be of about a month's duration. I do believe this is purely musculoskeletal, but due to his underlying cardiovascular risk, we will order a CT scan to ensure patient does not have chronic ischemic cerebrovascular disease. He needs orthopedic evaluation and physical therapy to address this. X-ray of the right shoulder was done, but he may benefit, especially more so from an MRI of the right shoulder. His weight might be an issue if he exceeds the limit of our MRI machine. We will continue with short- acting bronchodilators. ABG is still pending at this time because the patient, of which I forgot to mention, the patient did display asterixis which suggests he may be retaining CO2. He may benefit from BiPAP. This will depend on his ABG findings. cc: Arcelia Clark MD MTDD
[2019-08-29] MEDS: LASIX IV SCH ×3 (00:39→15:40)
[2019-08-29] MEDS: LIPITOR PO SCH ×2 (00:40→21:56)
[2019-08-29] MEDS: NITROGLYCERIN TOP SCH ×5 (00:40→23:57)
[2019-08-29] MEDS: DUONEB (A & A) INH SCH ×6 (04:13→23:10)
[2019-08-29] MEDS: PRILOSEC PO SCH (06:32)
[2019-08-29] MEDS: HUMALOG SUBQ SCH ×4 (07:37→21:55)
--- NOTE | 2019-08-29 07:37 | Diag Imaging Result Doc PS360 ---
EXAM: CHEST-2 VIEWS 08/28/2019 HISTORY: CHF TECHNIQUE: Two views of the chest COMMENT: There is cardiomegaly and increased pulmonary vascularity. There is alveolar opacity posteriorly probably in the right lower lobe. Compared to 08/28/2019 this appears slightly worse. There is a least some platelike atelectasis in the left lower lobe. IMPRESSION: Atelectasis versus pneumonia particularly in the right lower lobe. Cardiomegaly. The possibility of mild pulmonary edema cannot be excluded. Electronically signed by Cesar Alegria 08/29/2019 7:35 AM
--- NOTE | 2019-08-29 07:38 | Diag Imaging Result Doc PS360 ---
EXAM: SHOULDER 1 VIEW RIGHT 08/28/2019 HISTORY: Adhesive capsulitis TECHNIQUE: Right shoulder three views COMMENT: There are some degenerative changes in the acromioclavicular joint. There is no evidence of acute fracture or dislocation. There is no external rotation view. IMPRESSION: No evidence of acute bony abnormality. Electronically signed by Cesar Alegria 08/29/2019 7:36 AM
[2019-08-29 08:23] LABS: HEMATOCRIT 40.4 % (42.0-52.0); IMM GRAN# 0.03 X1000 (0.0-0.04); IMM GRAN% 0.5 % (0.0-0.5); LYMPH# 1.05 X1000 (1.2-3.4); LYMPH% 16.6 % (20.5-51.1); MCH 26.3 PG (27-31); MCHC 29.7 g/dL (33-37); MCV 88.6 FL (81-99); MONO# 0.18 X1000 (0.11-0.59); MONO% 2.9 % (1.7-9.3); MPV 10.4 FL (7.4-10.4); NEUT# 5.05 X1000 (1.4-6.5); PLT 244 X1000 (130-400); RBC 4.56 XMIL (4.7-6.1); WBC 6.31 X1000 (4.8-10.8)
[2019-08-29 08:30] LABS: HEMOGLOBIN A1C 7.3 % (4.8-6.0)
--- NOTE | 2019-08-29 08:33 | Diag Imaging Result Doc PS360 ---
EXAM: CT HEAD W/O CONTRAST 08/28/2019 HISTORY: R sided weakness TECHNIQUE: This exam was performed using automated exposure control, adjustment of mA or kV according to patient size, and/or use of iterative reconstruction technique. COMMENT: The current study is compared with the previous examination of 11/18/2017. Two acquisitions were obtained. There is no evidence of mass effect, bleed, or abnormal extra-axial fluid collection. The visualized paranasal sinuses are clear. The calvarium is intact. Compared paired to the previous study the appearance the brain has not changed significantly. IMPRESSION: No evidence of acute intracranial disease. Electronically signed by Cesar Alegria 08/29/2019 8:31 AM
[2019-08-29 09:18] LABS: AGAP 9; BUN 20 mg/dL (8-22); CALCIUM 9.4 mg/dL (8.8-10.2); CHLORIDE 93 mmol/L (98-107); COSMO 294; ESTIMATED GFR > 60; GLUCOSE 242 mg/dL (70-104); POTASSIUM 4.5 mmol/L (3.5-5.1); SODIUM 142 mmol/L (136-145); TCO2 40 mmol/L (25-35)
--- NOTE | 2019-08-29 12:39 | ECHO REPORT ---
ORDER DATE: 08/28/2019 INTERPRETING PHYSICIAN: Dr. Diego Sampson. ECHOCARDIOGRAPHIC MEASUREMENTS: 1. Interventricular septum 1.2. 2. Left ventricular posterior wall 0.9. 3. Diastolic diameter 5.8. 4. Left atrium 5. 5. Aorta 3.7. SUMMARY OF THE 2-DIMENSIONAL IMAGIN. Technically suboptimal study. Very poor acoustic window. 2. Aortic valve leaflets not well visualized. 3. Pulmonic valve not well visualized. 4. Mitral valve was normal. 5. Tricuspid valve was normal. 6. Peak velocity across the aortic valve less than 2 m/sec. There is no aortic stenosis or regurgitation. 7. There is trace mitral and trace tricuspid regurgitation. 8. Cannot comment on the diastolic function. Technically suboptimal study. Very poor acoustic window. 9. Optison was used to assess left ventricular systolic function. Normal left ventricular cavity size. There is concentric left ventricular hypertrophy. Estimated ejection fraction of 65%. 10. There is no pericardial effusion or obvious intracardiac mass or thrombus seen. cc: MD Arcelia Brown MD
[2019-08-29] MEDS: LOVENOX SUBQ SCH (12:42)
[2019-08-29] MEDS: NORVASC PO SCH (12:42)
[2019-08-29] MEDS: LANTUS INSULIN SUBQ SCH (12:43)
[2019-08-29] MEDS: ASPIRIN EC PO SCH (12:43)
[2019-08-29] MEDS: COZAAR PO SCH (12:43)
--- NOTE | 2019-08-29 13:57 | CARDIOLOGY CONSULTATION ---
DATE: 08/29/2019 HISTORY OF PRESENT ILLNESS: Pickwickian syndrome, sleep apnea, and hypertension who comes with complaints of increasing shortness of breath associated with sharp chest discomfort, nonradiating. He came to the emergency room as he was more short of breath. He had increasing pedal edema as well. He sleeps on a recliner at home. There is no history of palpitations. There is no dizziness or syncope. Does not complain of any cough with mucopurulent expectoration or fevers. He has multiple medical problems as listed below. REVIEW OF SYSTEM: A 14-point review of systems was done. GI system:: There is no history of nausea, vomiting, diarrhea. There is no history of hematemesis or melena. Central nervous system: No focal weakness to suggest a CVA or TIA. PAST MEDICAL HISTORY: 1. Morbid obesity. 2. Pickwickian syndrome. 3. Sleep apnea. 4. Hypertension. 5. Diabetes. 6. Ex-smoker. HOME MEDICATIONS: 1. DuoNeb inhalers. 2. Amlodipine 5 mg. 3. Amaryl 6 8 mg. 4. Metformin 1000 mg b.i.d. 5. Albuterol nebulizers. 6. Cozaar 100 mg. 7. Insulin 70/30 as directed 8. In the hospital, he is receiving Lasix 40 mg IV twice daily in addition to atorvastatin 40 mg a day. PHYSICAL EXAMINATION: Vital Signs: Blood pressure 114/67. HEENT: Atraumatic, normocephalic. Pupils were equal and reacting to light. Cardiac: First and second heart sounds were heard. There was no S3 gallop. Respiratory System: Expiratory wheeze. Abdomen: Was obese soft, nontender. There was no guarding or rigidity. Bowel sounds were heard. Extremities: Revealed pitting edema. LABORATORY EXAMINATION: Revealed pH 7.41, pCO2 69, PO2 45. Sodium 142, potassium 4.5, BUN 20, creatinine 1.0. Glucose elevated at 169. Troponin was negative. Electrocardiogram revealed normal sinus rhythm. There were no ST-T changes to suggest ischemia. Chest x- ray revealed cardiomegaly, atelectasis left lower lobe. ASSESSMENT AND PLAN: 1. Mr. Rodrigo Chadwick is a 59-year-old, gentleman with morbid obesity, sleep apnea, Pickwickian syndrome, diabetes, and hypertension admitted with increasing shortness of breath, sharp non anginal chest pain. He has been ruled out for myocardial infarction by cardiac enzymes. He has been started on Lasix symptomatically. He has improved. His ejection fraction revealed preserved left ventricular systolic function. Please see detailed echo report. 2. I would recommend continuing his current medications. 3. Diabetes. Continue with his current medications. 4. Hypertension. Continue with his current medications. 5. From a cardiac standpoint, I suspect his symptomatology is secondary to severe chronic obstructive pulmonary disease as well. Would recommend improving his pulmonary status. I will continue to manage him medically. Thank you for the consult. We will follow his hospital course. cc: Diego Sampson MD MTDD
--- NOTE | 2019-08-29 15:16 | PROGRESS NOTE ---
DATE: 08/29/2019 SUBJECTIVE: This patient is lying in bed. As per the patient, he is feeling better. He seems to be overloaded. He is receiving Lasix. I will continue with same management. On the other hand, he has been having generalized weakness. As per the , he has not been walking at home too much without help. He is morbidly obese with a BMI of 44.3. He apparently uses oxygen at home and a CPAP to sleep. OBJECTIVE: Vital Signs: Temperature 98.1 degrees, pulse 88, respiratory rate 22, blood pressure 122/77, oxygen saturation 96 on a nonrebreathing mask. HEENT: Head normocephalic. No trauma. PERRLA. Neck: Supple. No JVD. No masses. Central trachea. Chest: Clear to auscultation. Crepitus and scattered rhonchi, mostly at the bases. Abdomen: Soft, protuberant, nontender, nondistended. No hepatosplenomegaly. Extremities: There is 2 to 3+ lower extremity edema. No clubbing. No cyanosis. Neurological: Patient is awake. He is following commands. He has right upper extremity pain at the level of the shoulder with decreased range of motion, which is probably chronic. He had the same complaint in 2018. LABORATORY: WBC 6.3, hemoglobin 12.0, hematocrit 40.4, platelet count 244,000. Sodium 142, potassium 4.5, chloride 93, bicarbonate 40, BUN 20, creatinine 1, glucose 242, calcium 9.4, hemoglobin A1c 7.3. ASSESSMENT AND PLAN: 1. Likely acute diastolic heart failure exacerbation. Echocardiogram done a couple years ago showed a stable LV function. We will get a new echocardiogram at this point. We will continue with the same management including diuretics. He seems to be feeling a little bit better. 2. Hypertension. Continue with same management. He seems to be stable. 3. Type 2 diabetes with a hemoglobin A1c of 7.3. I need to find out what kind of medications he is on at home. His hyperglycemic is likely due to a shot of steroids that he received in the emergency department, but we will monitor. 4. Acute on chronic hypoxemic and hypercarbic respiratory failure. He has been placed on a nonrebreathing mask. I will get a new set of ABGs in the morning. Continue with same management, breathing treatment. 5. Morbid obesity with Pickwickian syndrome, obstructive sleep apnea. Aware. Continue with the same management for now. I think he uses a CPAP machine at home. 6. Chronic obstructive pulmonary disease exacerbation. He received a dose of steroids in the emergency department. He seems to be feeling better. He is not getting more steroids for now. He is not wheezing at this moment, but he has bilateral crepitus and rhonchi. 7. Right shoulder pain, this is chronic. He had this kind of pain 2 years ago as well upon my physical exam. The [*] department has been consulted. 8. Generalized weakness and physical deconditioning. As per the , he is not able to walk too much at home and he has been getting a lot of help. cc: Joyn Padilla MD
[2019-08-30] MEDS: DUONEB (A & A) INH SCH ×6 (03:32→22:21)
[2019-08-30] MEDS: NITROGLYCERIN TOP SCH ×5 (06:11→23:20)
[2019-08-30] MEDS: PRILOSEC PO SCH (06:11)
[2019-08-30] MEDS: HUMALOG SUBQ SCH ×4 (06:13→22:03)
[2019-08-30 06:41] LABS: ALLEN TEST YES; BE 14.4 mmoll (-3.0-3.0); BLOOD TYPE ARTERIAL; HCO3-(ACT) 36.2 mmoll (20.0-26.0); METHB 0.2 % (0.0-1.5); O2(CT) 18.6 mL/dL (15.0-23.0); O2HB 97.1 % (95.0-99.0); PO2(98.6) 130 mmHg (60-100); SAMPLE BLOOD; SAO2 99.1 % (95.0-100.0); THB 13.5 g/dL (11.5-17.4); pH(98.6) 7.37 (7.35-7.45)
[2019-08-30 06:42] LABS: MODALITY VENTIMASK; PCO2(98.6) 75 mmHg (35-45)
[2019-08-30] MEDS: LOVENOX SUBQ SCH (08:40)
[2019-08-30] MEDS: ASPIRIN EC PO SCH (08:41)
[2019-08-30] MEDS: COZAAR PO SCH (08:41)
[2019-08-30] MEDS: LASIX IV SCH ×2 (08:41→21:47)
[2019-08-30] MEDS: NORVASC PO SCH (08:41)
[2019-08-30] MEDS: LANTUS INSULIN SUBQ SCH (08:43)
[2019-08-30 09:05] LABS: ESTIMATED GFR > 60
[2019-08-30 09:11] LABS: AGAP 4; BUN 25 mg/dL (8-22); CALCIUM 8.7 mg/dL (8.8-10.2); CHLORIDE 96 mmol/L (98-107); COSMO 292; GLUCOSE 144 mg/dL (70-104); SODIUM 143 mmol/L (136-145); TCO2 43 mmol/L (25-35)
--- NOTE | 2019-08-30 14:48 | PROGRESS NOTE ---
DATE: 08/30/2019 SUBJECTIVE: This patient is still lying in bed. As per the patient, he is feeling a little bit better. Dr. Cisneros had recommended to use a BiPAP machine. I will continue with Lasix. I will continue basically with the same management. OBJECTIVE: Vital Signs: Temperature 98.3 degrees, pulse 76, respiratory rate 23, blood pressure 114/47, oxygen saturation 90 on 5 L of nasal cannula. HEENT: Head normocephalic. No trauma. PERRLA. Neck: Supple. No JVD. No masses. Central trachea. Chest: Decreased breath sounds globally, mostly at the bases. Some crepitus, scattered rhonchi. Abdomen: Soft, protuberant, nontender, nondistended. No hepatosplenomegaly. Extremities: There is 2+ lower extremity edema. No clubbing. No cyanosis. Neurological Examination: The patient is awake. He is following commands. Right upper extremity pain at the level of the shoulder with decrease decreased range of motion which is chronic. He had the same complaint in 2018. Laboratory Data: PH 7.37, pCO2 of 75, PO2 of 130, bicarbonate 36. Sodium 143, potassium 4, chloride 96, bicarbonate 43, BUN 25, creatinine 1, glucose 144, calcium 8.7. ASSESSMENT AND PLAN: 1. Acute diastolic heart failure exacerbation. Echocardiogram done a few days ago showed a stable left ventricular function. We will continue with the same management. We will continue with diuretics. He is feeling a little bit better. 2. Chronic obstructive pulmonary disease exacerbation. He is not wheezing anymore. He will be placed on the BiPAP machine per pulmonary department. Continue breathing treatments. Continue with the same management. 3. Hypertension. We will continue home medication. 4. Type 2 diabetes with a hemoglobin A1c of 7.3. 5. Acute on chronic hypoxemic and hypercarbic respiratory failure. He has been on a Venturi mask. At this moment, he will be on a BiPAP machine as well. He is hypercarbic today. 6. Morbid obesity with pickwickian syndrome, obstructive sleep apnea. Aware. Continue with the same management for now. I am not sure if he has a CPAP machine at home. 7. Right shoulder pain, probably capsulitis. This is chronic. He has been having this kind of pain for at least 2 years. Orthopedic surgery department consulted. 8. Generalized weakness and physical deconditioning. As per the , he has not been able to walk too much at home. He has been getting a lot of help. cc: Jony Padilla MD
--- NOTE | 2019-08-30 16:59 | PROVIDER PROGRESS NOTE ---
Progress Note Patient has been seen and examined. A full dictation to follow.
[2019-08-30] MEDS: LIPITOR PO SCH (21:48)
--- NOTE | 2019-08-30 22:10 | ORTHOPAEDICS CONSULTATION ---
DATE: 08/30/2019 CHIEF COMPLAINT: Right shoulder pain. HISTORY OF PRESENT ILLNESS: A 59-year-old male with a history of COPD and home oxygen, CHF, sleep apnea, type 2 diabetes. He presented to the emergency department with sharp pain, nonradiating, in his chest. He reported that he did have some shortness of breath. He was admitted to the hospital for acute onset diastolic heart failure with hypertensive heart disease and his diabetes. He also was having some shortness of breath. Orthopedics was consulted to come see the patient. PAST SURGICAL HISTORY: Patient denies. MEDICATIONS: The patient reports taking DuoNeb every 6 hours as needed for shortness of breath, amlodipine 5 mg daily, Amaryl 8 mg daily, metformin 1000 mg b.i.d., albuterol inhaler q.4h p.r.n. inhalation, Cozaar 100 mg daily, insulin 70/30. His doses are unknown at this time. He reports he takes it twice a day. LABORATORIES: His current labs: White blood cells 6.31, red blood cell 4.56, hemoglobin 12.0, hematocrit 40.4, platelets 244,000. Sodium 143, potassium 4.0, chloride 96, carbon dioxide 43 high, BUN 25, glucose 144, calcium 8.7. His proBNP is 278. IMAGING: X-ray of the right shoulder was performed and showed no acute abnormality. There is some decrease in joint space along the acromioclavicular joint. PHYSICAL EXAM: The patient cannot raise his arms above his head or behind his neck. There is decreased range of motion along the right shoulder. There is some tenderness on the right deltoid region near the bursa. There is good sensation to the right upper extremity. There is good radial pulse. 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 There is good capillary refill in the fingers.General: Patient is morbidly obese and sitting on side of the bed and is having some shortness of breath at this time. HEENT: Head is atraumatic, normocephalic. Eyes equal, round, reactive. Neck: Supple. Chest: There is equal chest expansion, rise and fall at this time. Abdomen: Large, nontender. ASSESSMENT: Adhesive capsulitis, right shoulder with decreased range of motion and possible bursitis of the shoulder. PLAN: We will plan to see this patient on an outpatient basis to set up some injections to help with his adhesive capsulitis. We will go ahead and get physical therapy started with him while he is in the hospital. He will need to be medically stable before we start working on him on an outpatient basis. We will be available as needed while he is in the hospital. He will need to follow up with Dr. Kumar as soon as he gets out of the hospital in the clinic. Dictated by ALLYSON Aguilera for Gilmar Kumar MD cc: ALLYSON Aguilera MD
[2019-08-31] MEDS: DUONEB (A & A) INH SCH ×6 (03:31→23:19)
[2019-08-31] MEDS: NITROGLYCERIN TOP SCH ×4 (05:30→23:30)
[2019-08-31 05:31] LABS: ALLEN TEST YES; BE 14.9 mmoll (-3.0-3.0); BLOOD TYPE ARTERIAL; HCO3-(ACT) 36.2 mmoll (20.0-26.0); METHB 0.7 % (0.0-1.5); O2(CT) 21.8 mL/dL (15.0-23.0); PO2(98.6) 54 mmHg (60-100); SAMPLE BLOOD; SAO2 89.4 % (95.0-100.0); THB 17.8 g/dL (11.5-17.4); pH(98.6) 7.33 (7.35-7.45)
[2019-08-31 05:43] LABS: MODALITY CANNULA; O2HB 87.6 % (95.0-99.0); PCO2(98.6) 89 mmHg (35-45)
[2019-08-31] MEDS: HUMALOG SUBQ SCH ×4 (06:34→21:21)
--- NOTE | 2019-08-31 07:38 | PULMONOLOGY CONSULTATION ---
DATE: 08/30/2019 REQUESTING PROVIDER: Dr. Jony Wilkins. REASON FOR CONSULTATION: Respiratory failure. HISTORY OF PRESENT ILLNESS: This is a 59-year-old, male with a medical history of COPD with chronic hypoxemic respiratory failure, morbid obesity with obstructive sleep apnea, and obesity hyperventilation syndrome, history of tobacco use, hypertension, diabetes mellitus type 2, gastroesophageal reflux disease, and hyperlipidemia. He presented to the ER on 08/28/2019 with worsening shortness of breath for 2 days, and acute intermittent substernal chest pain for 1 day. Initial workup in the ER revealed acute diastolic congestive heart failure exacerbation, COPD exacerbation, acute on chronic hypoxemic hypercapnic respiratory failure, and possible right adhesive capsulitis. He has been admitted to the medical floor for further evaluation and management. The patient currently is lying in bed with no acute distress noted. He is on Venturi mask 50%, but he keeps pulling off the mask as he is talking on phone. He reports chest pain has been resolved, but the right shoulder pain is still there. He still has shortness of breath with any activities. He reports severe pedal edema prior to admission, which apparently has been improved. He still has occasional dry cough. He sleeps with head of bed elevated as he cannot tolerate lying flat, but he reports no orthopnea or paroxysmal nocturnal dyspnea. He reports no bowel habit change or urination discomfort. PAST MEDICAL/SURGICAL HISTORY: 1. Chronic obstructive pulmonary disease with chronic hypoxemic respiratory failure, on home continuous oxygen at 3 L. 2. Morbid obesity with obstructive sleep apnea and obesity hyperventilation syndrome, on home CPAP therapy. Current BMI 44.33. 3. History of tobacco use, quit smoking 30 years ago. 4. Hypertension. 5. Diabetes mellitus type 2. 6. Gastroesophageal reflux disease. 7. Hyperlipidemia. SOCIAL HISTORY: The patient is and lives at home with his family. He is a former smoker, and quit smoking 30 years ago. He has no history of alcohol or illicit drug use. FAMILY HISTORY: Positive for heart disease, lung cancer, and breast cancer. ALLERGIES: No known drug allergies. REVIEW OF SYSTEMS: A 10-point review of systems was conducted, and the pertinent is listed within the HPI, otherwise noncontributory. PHYSICAL EXAMINATION: Vital Signs: Temperature 98.4 degrees, blood pressure 123/57, pulse 76, respiratory rate 23, oxygen saturation 96% on Venturi mask 50%. General: Morbidly obese, lying in bed with no acute distress noted. HEENT: Atraumatic, normocephalic. Trachea midline. Mucosa pink and moist. Neck: Short and thick. Respiratory: Mild tachypnea, with no increased work of breathing or accessory muscle use noted. Symmetrical excursion. Lungs: Auscultation revealed diminished breathing sounds bilaterally. Cardiovascular: Regular rate and rhythm with S1 and S2 noted. Distant heart sounds. Gastrointestinal: Soft, protuberant. Normoactive bowel sounds in all 4 quadrants. Nontender. Extremities: Bilateral lower extremity pitting edema, 1+ up to the knees. No cyanosis. No clubbing. Dorsalis pedis diminished bilaterally. Neurologic: Alert and oriented x4. Speech fluent. Follows commands. Right upper extremity weakness noted. LABORATORY DATA: Sodium 143, potassium 4.0, chloride 96, carbon dioxide 43, BUN 25, creatinine 1.0, glucose 144. ABG: PH 7.37, pCO2 of 75, PO2 of 130, HC03 of 36.2, base excess 14.4, oxyhemoglobin 97.1 on Venturi mask 50%. ASSESSMENT: This is a 59-year-old, male with a medical history of chronic obstructive pulmonary disease with chronic hypoxemic respiratory failure, morbid obesity with obstructive sleep apnea and obesity hyperventilation syndrome, history of tobacco use, hypertension, diabetes mellitus type 2, hyperlipidemia, and gastroesophageal reflux disease. He has been admitted to the medical floor since 08/28/2019 with acute diastolic congestive heart failure exacerbation, chronic obstructive pulmonary disease exacerbation, acute on chronic hypoxemic hypercapnic respiratory failure, and right shoulder pain. 1. Acute on chronic hypoxemic hypercapnic respiratory failure. 2. Right lower lobe atelectasis versus pneumonia, and left lower lobe atelectasis. 3. Morbid obesity with Pickwickian syndrome and obstructive sleep apnea. 4. Morbid obesity with obesity hyperventilation syndrome and obstructive sleep apnea. 5. Chronic obstructive pulmonary disease exacerbation. 6. Likely acute diastolic congestive heart failure exacerbation with mild troponin elevation. PLAN: 1. Continue current treatment and supportive care per admitting and other teams on the case. 2. Bronchodilators and diuresis. 3. Supplemental oxygen. BiPAP at bedtime and as needed. 4. Follow up with ABG and BMP. 5. Continue GI and DVT prophylaxis. 6. Discuss changing to BiPAP as an outpatient. 7. Further recommendations pending hospital course. Thank you for the courtesy of this consult. Dr. Cisneros did the examination, evaluation, management and orders. ALLYSON did the scribing/dictation for Dr. Cisneros according to his directions. Dictated by ALLYSON Julien for Efren Cisneros MD cc: ALLYSON Julien MD [facility]
[2019-08-31] MEDS: ASPIRIN EC PO SCH (08:16)
[2019-08-31] MEDS: NORVASC PO SCH (08:16)
[2019-08-31] MEDS: COZAAR PO SCH (08:16)
[2019-08-31] MEDS: PRILOSEC PO SCH (08:17)
[2019-08-31] MEDS: LOVENOX SUBQ SCH (08:17)
[2019-08-31] MEDS: LANTUS INSULIN SUBQ SCH (08:17)
[2019-08-31] MEDS: LASIX IV SCH ×2 (08:17→21:21)
[2019-08-31 09:17] LABS: ESTIMATED GFR > 60
[2019-08-31 09:23] LABS: AGAP 5; BUN 16 mg/dL (8-22); CALCIUM 9.4 mg/dL (8.8-10.2); CHLORIDE 93 mmol/L (98-107); COSMO 288; CREATININE 0.8 mg/dL (0.7-1.2); GLUCOSE 140 mg/dL (70-104); POTASSIUM 3.9 mmol/L (3.5-5.1); SODIUM 143 mmol/L (136-145); TCO2 45 mmol/L (25-35)
--- NOTE | 2019-08-31 13:03 | PROGRESS NOTE ---
DATE: 08/31/2019 SUBJECTIVE: Mr. Chadwick was admitted on 08/28/2019. His doctor is Dee Figueroa, primary care physician is in [place]. He came in with chest pain, shortness of breath for 2 days. A 59-year-old with history of COPD on home O2, presumed diastolic heart failure, sleep apnea, hypertension, heart disease, diabetes mellitus type 2, presented to the hospital primary because of retrosternal dull, sharp pain, nonradiating and additional anginal equivalent suggested. He had just walked to his car and came back when the pain came on. The ambulance came, got him to the emergency room, it spontaneously resolved. He has a 2-day history of shortness of breath. He was admitted with acute diastolic heart failure, hypertensive heart disease, diabetes mellitus type 2, obstructive sleep apnea, morbid obesity and chronic obstructive pulmonary disease on O2 at home, possible right adhesive capsulitis. He reports that he is feeling better. Orthopedics has evaluated him, Dr. Kris Yanez saw him, felt he had adhesive capsulitis right shoulder, decreased range of motion, possible bursitis of the shoulder. Pulmonary was asked to see, felt he has chronic obstructive pulmonary disease with chronic hypoxemic respiratory failure on home oxygen continuous at 3 L per nasal cannula and morbid obesity with obstructive sleep apnea, BMI is 44, and a history of tobacco use which he quit smoking 30 years ago, hypertension, diabetes mellitus type 2, gastroesophageal reflux disease, and hyperlipidemia. OBJECTIVE: General: He is sitting up in a chair, stated he was breathing better and feeling better. Vital signs: Temperature 97.9 degrees, pulse 82, respirations 20, blood pressure 127/55. HEENT: Pupils are equal and round. Neck: No distended neck veins. Lungs: Clear in all lung regalado. Cardiovascular: Regular rhythm and rate without murmur or S3. Urine output: 3200 mL. ASSESSMENT AND PLAN: 1. Acute diastolic heart failure exacerbation. Echocardiogram revealed stable left ventricular function. Continue the same management with managing his blood pressure afterload and diuretics. He was feeling better. 2. Chronic obstructive pulmonary disease exacerbation. He is not wheezing anymore. He presented with an element of bronchospasm. He is placed on a BiPAP machine and I think they are in the process of trying to get CPAP for him when he goes home. 3. Hypertension. Continue home medication. He is at 3 L oxygen per nasal cannula. 4. Diabetes mellitus type 2. Sugars appear under good control. Hemoglobin A1c was 7.3. 5. Acute on chronic hypoxemic, hypercapnic respiratory failure. He is on a Venturi mask and he is using the BiPAP for his hypercapnia. 6. Morbid obesity, Pickwickian syndrome, obstructive sleep apnea, hypoventilation syndrome, and trying to get him eligible for a CPAP machine to use at home. 7. Right shoulder pain, probably adhesive capsulitis. He has had this pain for about 2 years. Orthopedics has evaluated him. 8. General weakness, physical conditioning. Continue physical therapy and see if we can get him some home health, continue physical therapy. REVIEW OF HIS ORDERS: He is on Lipitor 40 mg at bedtime, Norvasc 5 mg a day, aspirin 81 mg a day, Lasix 40 mg IV q.12, Cozaar 100 mg p.o. daily, Prilosec 20 mg daily. MOST RECENT LAB: On the , white count 6310, hematocrit 40, platelet count 244,000. Electrolytes from today, sodium 143, potassium 3.9, chloride 93, BUN 16, creatinine 0.8, blood sugars 194, 134, 140, 187. cc: Michael Scott MD
[2019-08-31 14:32] LABS: ALLEN TEST YES; BE 20.8 mmoll (-3.0-3.0); BLOOD TYPE ARTERIAL; METHB 0.1 % (0.0-1.5); MODALITY CANNULA; O2(CT) 15.3 mL/dL (15.0-23.0); O2HB 91.7 % (95.0-99.0); PO2(98.6) 57 mmHg (60-100); SAMPLE BLOOD; SAO2 94.4 % (95.0-100.0); THB 11.9 g/dL (11.5-17.4); pH(98.6) 7.38 (7.35-7.45)
[2019-08-31 14:39] LABS: PCO2(98.6) 85 mmHg (35-45)
[2019-08-31 17:58] LABS: BLOOD TYPE ARTERIAL; SAMPLE BLOOD
[2019-08-31 18:08] LABS: ALLEN TEST YES; BE 18.5 mmoll (-3.0-3.0); HCO3-(ACT) 39.1 mmoll (20.0-26.0); O2(CT) 19.1 mL/dL (15.0-23.0); PO2(98.6) 60 mmHg (60-100); SAO2 91.3 % (95.0-100.0); SRATE 16 BPM; THB 15.1 g/dL (11.5-17.4); pH(98.6) 7.35 (7.35-7.45)
[2019-08-31 18:10] LABS: MODALITY BI PAP
--- NOTE | 2019-08-31 18:10 | PROVIDER PROGRESS NOTE ---
Progress Note Dr. Cisneros Progress Note/Pulmonary and or critical care Subjective: Patient is sitting in bed with no acute distress noted. He is on HFNC 45L/min 40% at this time. He appears lethargic. He apparently refused BiPAP last night. ABG this morning shows worsening hypercapnia with pCO2 89. Objective: Vital Signs: We reviewed EMR current values for Pulse rate, Blood pressure, Pulse rate, respiratory rate and Pulse oximetry. Also noted other values and trends if present (e.g. I/O, CVP). T 98.4, TN 83, RR 18, BP 143/65 and SaO2 95% on HFNC 40%. Physical Examination General: Morbidly obese. Lying in bed with no acute distress noted. HEENT: Normocephalic. Trachea midline. Mucosa pink and moist. Neck short and thick. Chest: Even and unlabored. Symmetrical excursion. Diminished breathing sounds globally. CVS: S1 and S2 appreciated. Abdomen: Soft. Nontender. Protuberant. Normoactive bowel sounds in all 4 quadrants. Extremities: BLE pitting edema 1-2+ up to the knees. No cyanosis. No clubbing. Right shoulder pain with decreased ROM. Neuro: Lethargic. Labs and Radiology: Laboratory Results 08/30/19 08/31/19 08/31/19 20:41 05:20 05:55 Specimen Type ARTERIAL Sample Site R RADIAL pH 7.33 L pCO2 89 H* pO2 54 L HCO3 36.2 H Base Excess 14.9 H Oxyhemoglobin 87.6 L* ABG O2 Sat (Calculated) 21.8 ABG O2 Saturation 89.4 L ABG Carboxyhemoglobin 1.40 ABG Methemoglobin 0.7 Michael Test YES A-a O2 Difference 120.0 Total Hemoglobin 17.8 H Lactate 0.90 Liter Flow 5.0 Blood Gas Modality CANNULA FiO2 % 40.0 Sodium Potassium Chloride Carbon Dioxide Anion Gap BUN Creatinine Estimated GFR/1.73 m2 BUN/Creatinine Ratio Glucose POC Glucose 194 H 134 H Calculated Osmolality Calcium 08/31/19 08/31/19 08/31/19 07:55 10:17 13:30 Specimen Type ARTERIAL Sample Site L RADIAL pH 7.38 pCO2 85 H* pO2 57 L HCO3 41.0 H Base Excess 20.8 H Oxyhemoglobin 91.7 L ABG O2 Sat (Calculated) 15.3 ABG O2 Saturation 94.4 L ABG Carboxyhemoglobin 2.80 H ABG Methemoglobin 0.1 Michael Test YES A-a O2 Difference 122.0 Total Hemoglobin 11.9 Lactate 0.60 Liter Flow 45.0 Blood Gas Modality CANNULA FiO2 % 40.0 Sodium 143 Potassium 3.9 Chloride 93 L Carbon Dioxide 45 H Anion Gap 5 BUN 16 Creatinine 0.8 Estimated GFR/1.73 m2 > 60 BUN/Creatinine Ratio 20 Glucose 140 H POC Glucose 187 H Calculated Osmolality 288 Calcium 9.4 08/31/19 15:51 Specimen Type Sample Site pH pCO2 pO2 HCO3 Base Excess Oxyhemoglobin ABG O2 Sat (Calculated) ABG O2 Saturation ABG Carboxyhemoglobin ABG Methemoglobin Michael Test A-a O2 Difference Total Hemoglobin Lactate Liter Flow Blood Gas Modality FiO2 % Sodium Potassium Chloride Carbon Dioxide Anion Gap BUN Creatinine Estimated GFR/1.73 m2 BUN/Creatinine Ratio Glucose POC Glucose 145 H Calculated Osmolality Calcium Assessment: Acute on chronic hypoxemic hypercapnic respiratory failure. RLL atelectasis vs. pneumonia and LLL atelectasis. Morbid obesity with Pickwickian syndrome and TSERING. COPD exacerbation. Likely acute diastolic congestive heart failure exacerbation with mild Troponin elevation. Plan: Continue current treatment and supportive care per admitting and other teams on the case. Bronchodilators. Diuresis. Stat ABG. BiPAP qhs and prn. Appropriate GI and DVT prophylaxis.
[2019-08-31 18:11] LABS: PCO2(98.6) 90 mmHg (35-45)
[2019-08-31] MEDS: LIPITOR PO SCH (21:21)
[2019-08-31 22:03] LABS: ALLEN TEST YES; BE 20.4 mmoll (-3.0-3.0); BLOOD TYPE ARTERIAL; HCO3-(ACT) 40.8 mmoll (20.0-26.0); O2(CT) 17.9 mL/dL (15.0-23.0); O2HB 96.1 % (95.0-99.0); PO2(98.6) 142 mmHg (60-100); SAMPLE BLOOD; SAO2 98.2 % (95.0-100.0); THB 13.1 g/dL (11.5-17.4); pH(98.6) 7.48 (7.35-7.45)
[2019-08-31 22:06] LABS: MODALITY BI PAP
[2019-08-31 22:07] LABS: PCO2(98.6) 64 mmHg (35-45)
[2019-09-01] MEDS: DUONEB (A & A) INH SCH ×6 (02:00→22:38)
[2019-09-01 05:47] LABS: ALLEN TEST YES; BE 19.9 mmoll (-3.0-3.0); BLOOD TYPE ARTERIAL; HCO3-(ACT) 40.4 mmoll (20.0-26.0); O2(CT) 16.7 mL/dL (15.0-23.0); O2HB 96.9 % (95.0-99.0); PO2(98.6) 114 mmHg (60-100); SAMPLE BLOOD; SAO2 98.7 % (95.0-100.0); THB 12.1 g/dL (11.5-17.4); pH(98.6) 7.39 (7.35-7.45)
[2019-09-01 06:03] LABS: PCO2(98.6) 81 mmHg (35-45)
[2019-09-01 06:04] LABS: MODALITY BI PAP
[2019-09-01] MEDS: NITROGLYCERIN TOP SCH ×3 (06:50→18:26)
[2019-09-01] MEDS: HUMALOG SUBQ SCH ×4 (06:52→20:32)
[2019-09-01] MEDS: LOVENOX SUBQ SCH (09:44)
[2019-09-01] MEDS: ASPIRIN EC PO SCH (09:44)
[2019-09-01] MEDS: LASIX IV SCH ×2 (09:44→21:55)
[2019-09-01] MEDS: NORVASC PO SCH (09:44)
[2019-09-01] MEDS: LANTUS INSULIN SUBQ SCH (09:44)
[2019-09-01] MEDS: COZAAR PO SCH (09:44)
[2019-09-01] MEDS: PRILOSEC PO SCH (09:44)
--- NOTE | 2019-09-01 09:48 | PROGRESS NOTE ---
DATE: 09/01/2019 SUBJECTIVE: Mr. Chadwick is on the BiPAP. He did not get much sleep last night, did not want to wear the BiPAP, and so he is wore out. He had some confusion through the night. OBJECTIVE: Vital Signs: Temperature 98.4 degrees, pulse 69, respirations 17, blood pressure 109/48. Eyes: Pupils are equal and round. Lungs: Clear in all lung regalado. Cardiovascular exam: Regular rhythm and rate without murmur or S3. He is a large man. Breath sounds are distant, but he seems to be moving air better, and he was sleeping. Appeared more comfortable. : His urine output was 55 liters. ASSESSMENT AND PLAN: 1. Acute on chronic hypoxemic hypercapnic respiratory failure. 2. Right lower lobe atelectasis versus pneumonia. 3. Left lower lobe atelectasis. 4. Morbid obesity. 5. Pickwickian syndrome. 6. Obstructive sleep apnea. 7. Chronic obstructive pulmonary disease exacerbation. 8. Likely acute diastolic congestive heart failure exacerbation with mild troponin elevation. 9. Hypertension. 10. Right shoulder pain, suspect adhesive capsulitis. Continue present measures. Encouraged him to use the BiPAP. cc: Michael Scott MD
[2019-09-01 10:14] LABS: ALLEN TEST YES; BE 21.1 mmoll (-3.0-3.0); BLOOD TYPE ARTERIAL; HCO3-(ACT) 41.3 mmoll (20.0-26.0); METHB 0.8 % (0.0-1.5); O2(CT) 17.3 mL/dL (15.0-23.0); O2HB 94.5 % (95.0-99.0); PO2(98.6) 77 mmHg (60-100); SAMPLE BLOOD; SAO2 96.5 % (95.0-100.0); pH(98.6) 7.43 (7.35-7.45)
[2019-09-01 10:15] LABS: MODALITY BI PAP; PCO2(98.6) 75 mmHg (35-45)
--- NOTE | 2019-09-01 18:46 | PROVIDER PROGRESS NOTE ---
Progress Note Dr. Cisneros Progress Note/Pulmonary and or critical care Subjective: Patient is lying in bed with no acute distress noted. He is on VM 50% at this time. He appears alert and oriented. He reports no pain. He states he used BiPAP over night. He apparently was kept in NPO and he is not happy with. is at the bedside. Objective: Vital Signs: We reviewed EMR current values for Pulse rate, Blood pressure, Pulse rate, respiratory rate and Pulse oximetry. Also noted other values and trends if present (e.g. I/O, CVP). T 98.4, MN 69, RR 24, BP 109/48 and SaO2 97% on BiPAP 50% 11/05. Physical Examination General: Morbidly obese. Lying in bed with no acute distress noted. HEENT: Normocephalic. Trachea midline. Mucosa pink and moist. Neck short and thick. Chest: Even and unlabored. Symmetrical excursion. Diminished breathing sounds globally. CVS: S1 and S2 appreciated. Abdomen: Soft. Nontender. Protuberant. Normoactive bowel sounds in all 4 quadrants. Extremities: BLE trace edema. No cyanosis. No clubbing. Right shoulder pain with decreased ROM. Neuro: Alert and oriented x3. Speech fluent. Follow simple commands. Labs and Radiology: Laboratory Results 08/31/19 08/31/19 09/01/19 19:34 22:00 05:37 Specimen Type ARTERIAL ARTERIAL Sample Site R RADIAL R RADIAL pH 7.48 H 7.39 pCO2 64 H* 81 H* pO2 142 H 114 H HCO3 40.8 H 40.4 H Base Excess 20.4 H 19.9 H Oxyhemoglobin 96.1 96.9 ABG O2 Sat (Calculated) 17.9 16.7 ABG O2 Saturation 98.2 98.7 ABG Carboxyhemoglobin 1.10 1.70 ABG Methemoglobin 1.0 0.0 Michael Test YES YES A-a O2 Difference 135.0 141.0 Total Hemoglobin 13.1 12.1 Lactate 0.70 1.10 Blood Gas Modality BI PAP BI PAP Vent Mode BIPAP FiO2 % 50.0 50.0 Inspiratory BiPAP 22.0 22.0 Expiratory BiPAP 10.0 10.0 POC Glucose 168 H 09/01/19 09/01/19 09/01/19 05:39 10:00 10:18 Specimen Type ARTERIAL Sample Site L RADIAL pH 7.43 pCO2 75 H* pO2 77 HCO3 41.3 H Base Excess 21.1 H Oxyhemoglobin 94.5 L ABG O2 Sat (Calculated) 17.3 ABG O2 Saturation 96.5 ABG Carboxyhemoglobin 1.30 ABG Methemoglobin 0.8 Michael Test YES A-a O2 Difference 186.0 Total Hemoglobin 13.0 Lactate 0.50 Blood Gas Modality BI PAP Vent Mode FiO2 % 50.0 Inspiratory BiPAP 24.0 Expiratory BiPAP 10.0 POC Glucose 173 H 136 H 09/01/19 15:49 Specimen Type Sample Site pH pCO2 pO2 HCO3 Base Excess Oxyhemoglobin ABG O2 Sat (Calculated) ABG O2 Saturation ABG Carboxyhemoglobin ABG Methemoglobin Michael Test A-a O2 Difference Total Hemoglobin Lactate Blood Gas Modality Vent Mode FiO2 % Inspiratory BiPAP Expiratory BiPAP POC Glucose 155 H Assessment: Acute on chronic hypoxemic hypercapnic respiratory failure. RLL atelectasis vs. pneumonia and LLL atelectasis. Morbid obesity with Pickwickian syndrome and TSERING. Noncompliant with BiPAP. COPD exacerbation. Likely acute diastolic congestive heart failure exacerbation with mild Troponin elevation. Plan: Continue current treatment and supportive care per admitting and other teams on the case. Bronchodilators. Diuresis. Continue supplemental oxygen. Continue BiPAP qhs and prn. Change BiPAP setting from 18/10 to 22/10 since last night. We will further increase BiPAP setting to 24/10 and will check ABG later. Appropriate GI and DVT prophylaxis. Discuss patients condition and care plan with family at the bedside and all questions have been answered.
[2019-09-01] MEDS: LIPITOR PO SCH (21:55)
[2019-09-02] MEDS: NITROGLYCERIN TOP SCH ×4 (00:41→16:42)
[2019-09-02] MEDS: DUONEB (A & A) INH SCH ×7 (03:20→23:45)
[2019-09-02 05:41] LABS: ALLEN TEST YES; BE 17.1 mmoll (-3.0-3.0); BLOOD TYPE ARTERIAL; HCO3-(ACT) 38.3 mmoll (20.0-26.0); METHB 0.8 % (0.0-1.5); O2(CT) 17.8 mL/dL (15.0-23.0); O2HB 96.7 % (95.0-99.0); PO2(98.6) 149 mmHg (60-100); SAMPLE BLOOD; SAO2 98.5 % (95.0-100.0); THB 12.9 g/dL (11.5-17.4); pH(98.6) 7.46 (7.35-7.45)
[2019-09-02 05:48] LABS: MODALITY BI PAP; PCO2(98.6) 62 mmHg (35-45)
[2019-09-02] MEDS: PRILOSEC PO SCH (06:03)
[2019-09-02] MEDS: HUMALOG SUBQ SCH ×4 (06:03→20:29)
--- NOTE | 2019-09-02 09:32 | PROGRESS NOTE ---
DATE: 09/02/2019 SUBJECTIVE: Mr. Chadwick looks much better this morning. He is off his BiPAP. He was eating some breakfast. He is awake and alert, and no trouble breathing at this point. OBJECTIVE: Vital Signs: He remains afebrile, temperature 98.9 degrees, pulse 70, respirations 18, blood pressure 113/50. Last several blood pressures are 109/48, 103/50, 128/51, and 113/50. HEENT: Pupils are equal and round. Lungs: Clear anterolateral and posterior. Cardiovascular: Regular rhythm and rate without murmur or S3. Urine output was 1300 mL. ASSESSMENT AND PLAN: Acute on chronic hypoxemic hypercapnic respiratory failure, right lower lobe atelectasis versus pneumonia, left lower lobe atelectasis, morbid obesity with Pickwickian syndrome, obstructive sleep apnea, noncompliant to his bilevel positive airway pressure yesterday, but good air exchange is much better today, chronic obstructive pulmonary disease exacerbation, likely has acute diastolic congestive heart failure exacerbation with mild troponin elevation. Continue present treatment. Use the bilevel positive airway pressure as needed. Try and set him up. I think he has continuous positive airway pressure at home, but I am not sure if it is working or if it is adjusted. REVIEW OF ORDERS: He is on Lipitor 40 mg at bedtime, Norvasc 5 mg a day, aspirin 81 mg a day, Lasix 40 mg IV every 12 hours, insulin glargine 40 units subcutaneously daily, Cozaar 100 mg p.o. daily, omeprazole 20 mg daily. Physical Therapy is involved, and Occupational Therapy as well. cc: Michael Scott MD
[2019-09-02] MEDS: COZAAR PO SCH (09:57)
[2019-09-02] MEDS: LASIX IV SCH ×2 (09:57→20:29)
[2019-09-02] MEDS: ASPIRIN EC PO SCH (09:57)
[2019-09-02] MEDS: LANTUS INSULIN SUBQ SCH (09:57)
[2019-09-02] MEDS: NORVASC PO SCH (09:58)
[2019-09-02] MEDS: LOVENOX SUBQ SCH (09:58)
--- NOTE | 2019-09-02 19:31 | PROVIDER PROGRESS NOTE ---
Progress Note Dr. Cisneros Progress Note/Pulmonary and or critical care Subjective: Patient is sitting on the bedside chair with no acute distress noted. He is on NC 5L at this time. He appears alert and oriented. He reports no pain. He states he used BiPAP overnight. He asks when he can go home. Again, we stress the importance of BiPAP compliance and we encourage him to have an outpatient sleep study done as soon as possible after discharge. is at the bedside. Objective: Vital Signs: We reviewed EMR current values for Pulse rate, Blood pressure, Pulse rate, respiratory rate and Pulse oximetry. Also noted other values and trends if present (e.g. I/O, CVP). T 98.5, CO 81, RR 20, BP 121/63 and SaO2 95% on NC 5L. Physical Examination General: Morbidly obese. Lying in bed with no acute distress noted. HEENT: Normocephalic. Trachea midline. Mucosa pink and moist. Neck short and thick. Chest: Even and unlabored. Symmetrical excursion. Diminished breathing sounds globally. CVS: S1 and S2 appreciated. Abdomen: Soft. Nontender. Protuberant. Normoactive bowel sounds in all 4 quadrants. Extremities: BLE trace edema. No cyanosis. No clubbing. Right shoulder pain with decreased ROM. Neuro: Alert and oriented x3. Speech fluent. Follow simple commands. Labs and Radiology: Laboratory Results 09/01/19 09/02/19 09/02/19 19:36 05:30 05:32 Specimen Type ARTERIAL Sample Site R RADIAL pH 7.46 H pCO2 62 H* pO2 149 H HCO3 38.3 H Base Excess 17.1 H Oxyhemoglobin 96.7 ABG O2 Sat (Calculated) 17.8 ABG O2 Saturation 98.5 ABG Carboxyhemoglobin 1.00 ABG Methemoglobin 0.8 Michael Test YES A-a O2 Difference 130.0 Total Hemoglobin 12.9 Lactate 0.70 Blood Gas Modality BI PAP Vent Mode BIPAP FiO2 % 50.0 Inspiratory BiPAP 24.0 Expiratory BiPAP 10.0 POC Glucose 212 H 187 H 09/02/19 09/02/19 12:13 15:57 Specimen Type Sample Site pH pCO2 pO2 HCO3 Base Excess Oxyhemoglobin ABG O2 Sat (Calculated) ABG O2 Saturation ABG Carboxyhemoglobin ABG Methemoglobin Michael Test A-a O2 Difference Total Hemoglobin Lactate Blood Gas Modality Vent Mode FiO2 % Inspiratory BiPAP Expiratory BiPAP POC Glucose 218 H 144 H Assessment: Acute on chronic hypoxemic hypercapnic respiratory failure. RLL atelectasis vs. pneumonia and LLL atelectasis. Morbid obesity with Pickwickian syndrome and TSERING. COPD exacerbation. Likely acute diastolic congestive heart failure exacerbation with mild Troponin elevation. Plan: Continue current treatment and supportive care per admitting and other teams on the case. Bronchodilators. Diuresis. Continue supplemental oxygen. Continue BiPAP qhs and prn. We will continue current BiPAP pressure settings. Appropriate GI and DVT prophylaxis. Discuss patients condition and care plan with family at the bedside and all questions have been answered. Recommend outpatient sleep study after discharge.
[2019-09-02] MEDS: LIPITOR PO SCH (20:29)
[2019-09-03] MEDS: NITROGLYCERIN TOP SCH ×5 (02:00→22:05)
[2019-09-03] MEDS: DUONEB (A & A) INH SCH ×6 (03:18→23:29)
[2019-09-03] MEDS: PRILOSEC PO SCH (06:34)
[2019-09-03] MEDS: HUMALOG SUBQ SCH ×4 (06:34→21:47)
[2019-09-03 07:34] LABS: ALLEN TEST YES; BE 16.3 mmoll (-3.0-3.0); BLOOD TYPE ARTERIAL; HCO3-(ACT) 37.7 mmoll (20.0-26.0); PO2(98.6) 102 mmHg (60-100); SAMPLE BLOOD; pH(98.6) 7.37 (7.35-7.45)
[2019-09-03 07:42] LABS: MODALITY BI PAP; PCO2(98.6) 79 mmHg (35-45)
--- NOTE | 2019-09-03 07:57 | Diag Imaging Result Doc PS360 ---
EXAM: CHEST-1 VIEW HISTORY: SOB TECHNIQUE: Single view COMPARISON: 08/29/2009 FINDINGS: Poor inspiratory effort. The heart remains enlarged. There is pulmonary edema as well as basilar atelectasis. Questionable underlying infiltrates in the right base. IMPRESSION: No interval improvement Electronically signed by Eber Ayala 09/03/2019 7:55 AM
[2019-09-03] MEDS: VENTOLIN HFA INH SCH (08:07)
[2019-09-03] MEDS: ASPIRIN EC PO SCH (08:32)
[2019-09-03] MEDS: NORVASC PO SCH (08:32)
[2019-09-03] MEDS: COZAAR PO SCH (08:32)
[2019-09-03] MEDS: LANTUS INSULIN SUBQ SCH (08:32)
[2019-09-03] MEDS: LOVENOX SUBQ SCH (08:33)
[2019-09-03] MEDS: LASIX IV SCH ×2 (08:33→21:46)
--- NOTE | 2019-09-03 12:30 | PROGRESS NOTE ---
DATE: 09/03/2019 SUBJECTIVE: Mr. Chadwick is on the BiPAP. He is awake, he is alert and he does feel better. He can tell the swelling has gone down. He remains afebrile. OBJECTIVE: Vital Signs: Temperature 98.4 degrees, pulse 74, respirations 16, blood pressure 100/47. Eyes: Pupils are equal and round. Lungs: Lungs are clear in all lung regalado. Cardiovascular exam: Regular rhythm and rate without murmur or S3. : Urine output is 2100 mL. X-RAYS: Chest x-ray: No interval improvement. Poor inspiratory effort. Heart remains enlarged. There is pulmonary edema, as well as basilar atelectasis. Questionable underlying infiltrates in the right base. Clinically though he is better, and just seems to be moving air better. ASSESSMENT AND PLAN: 1. Acute on chronic hypoxemic hypercapnic respiratory failure. 2. Right lower lobe atelectasis with pneumonia, left lower lobe atelectasis. 3. Morbid obesity and Pickwickian syndrome, obstructive sleep apnea. 4. Chronic obstructive pulmonary disease exacerbation. 5. Likely acute diastolic heart failure exacerbation with mild troponin elevation. So, continue diuresis. Continue cyclic BiPAP, supplementary oxygen, bronchodilators. I think we are making progress. He has physical therapy ordered and occupational therapy. REVIEW OF HIS ORDERS: He is on Lipitor 40 mg a day, Norvasc 5 mg a day, aspirin 81 mg a day, Lovenox 40 mg subcutaneous daily, Lasix 40 mg IV q. 12 hours, losartan 100 mg p.o. daily, Prilosec 20 mg daily. REVIEW OF HIS LAB: Hematocrit 40, hemoglobin 12, white blood cell count is 6310. Blood sugars have been 260, 152 and 221. is concerned that the [employer] says that if they do not pay their bill, she will get her lights/power turned off, and so I will ask medical social worker to help and see if they can help her with that. cc: Michael Scott MD
--- NOTE | 2019-09-03 21:17 | PULMONOLOGY PROGRESS NOTE ---
DATE: 09/03/2019 SUBJECTIVE: The patient is awake, alert, and conversant. He is currently sitting in the bedside chair. He reports his breathing has continued to improve. He has a slightly wet cough. OBJECTIVE: Vital Signs: The patient has been afebrile for the last 24 hours. Blood pressure 120/56, heart rate 81, respiratory rate 16, oxygen saturation 93% on nasal cannula. HEENT: Pupils are equal and reactive. Oropharynx is clear. Neck: Supple. Chest: Reveals crackles in both lung bases. Cardiac: S1-S2. Abdomen: Obese and soft. Extremities: Reveal decreasing edema. IMPRESSION: A 59-year-old with: 1. Acute on chronic hypoxemic and hypercapnic respiratory failure. 2. Morbid obesity with a body mass index greater than 44. 3. Pneumonia with basilar atelectasis. 4. Chronic obstructive pulmonary disease exacerbation. PLAN: 1. Continue BiPAP at bedtime and p.r.n. 2. Continue diuretics as tolerated. 3. Mobilize as tolerated. 4. Two-view chest x-ray tomorrow. cc: Abhinav Carlson MD
[2019-09-03] MEDS: LIPITOR PO SCH (21:46)
[2019-09-04] MEDS: DUONEB (A & A) INH SCH ×6 (03:27→22:56)
[2019-09-04] MEDS: NITROGLYCERIN TOP SCH ×4 (04:49→22:18)
[2019-09-04] MEDS: PRILOSEC PO SCH (06:26)
[2019-09-04] MEDS: HUMALOG SUBQ SCH ×4 (06:26→21:34)
[2019-09-04 07:30] LABS: BASO# 0.03 X1000 (0.0-0.2); BASO% 0.4 % (0.0-0.8); EOS# 0.29 X1000 (0.0-0.7); HEMATOCRIT 42.2 % (42.0-52.0); HEMOGLOBIN 12.7 g/dL (14.0-18.0); IMM GRAN# 0.02 X1000 (0.0-0.04); IMM GRAN% 0.3 % (0.0-0.5); LYMPH# 1.79 X1000 (1.2-3.4); LYMPH% 24.8 % (20.5-51.1); MCH 26.5 PG (27-31); MCHC 30.1 g/dL (33-37); MCV 87.9 FL (81-99); MONO# 1.03 X1000 (0.11-0.59); MONO% 14.3 % (1.7-9.3); MPV 10.2 FL (7.4-10.4); NEUT# 4.05 X1000 (1.4-6.5); NEUT% 56.2 % (42.2-75.2); PLT 253 X1000 (130-400); WBC 7.21 X1000 (4.8-10.8)
[2019-09-04 07:57] LABS: AGAP 8; ALB/GLOB RATIO 1.1; ALBUMIN 3.7 g/dL (3.5-5.0); ALKALINE PHOSPHATASE 53 U/L (32-122); BUN 25 mg/dL (8-22); CALCIUM 9.2 mg/dL (8.8-10.2); CHLORIDE 95 mmol/L (98-107); COSMO 294; CREATININE 1.1 mg/dL (0.7-1.2); ESTIMATED GFR > 60; GLUCOSE 254 mg/dL (70-104); GOT 15 U/L (10-34); GPT 9 U/L (10-44); MAGNESIUM 1.9 mg/dL (1.5-2.7); PHOSPHORUS 3.1 mg/dL (2.7-4.5); POTASSIUM 4.2 mmol/L (3.5-5.1); SODIUM 141 mmol/L (136-145); TCO2 38 mmol/L (25-35); TOTAL BILIRUBIN 0.31 mg/dL (0.20-1.00)
[2019-09-04] MEDS: VENTOLIN HFA INH SCH (08:21)
[2019-09-04] MEDS: ASPIRIN EC PO SCH (09:50)
[2019-09-04] MEDS: NORVASC PO SCH (09:50)
[2019-09-04] MEDS: LANTUS INSULIN SUBQ SCH (09:51)
[2019-09-04] MEDS: LASIX IV SCH ×2 (09:51→21:34)
[2019-09-04] MEDS: LOVENOX SUBQ SCH (09:51)
[2019-09-04] MEDS: COZAAR PO SCH (09:51)
--- NOTE | 2019-09-04 10:45 | PROGRESS NOTE ---
DATE: 09/04/2019 SUBJECTIVE: Mr. Chadwick is sitting up in a chair. He is off his BiPAP. He is breathing comfortably. He reports he has had a bowel movement in a week. He remains afebrile. OBJECTIVE: Vital signs: Temperature 98 degrees, pulse 79, respirations 20, blood pressure 128/52. HEENT: Pupils are equal and round. Lungs: Clear in all lung regalado anterolateral. No wheezing. Cardiovascular: Regular rhythm and rate without murmur or S3. Abdomen: Soft. Skin: Warm and dry. URINE OUTPUT: 2300 mL. ASSESSMENT AND PLAN: 1. Acute on chronic hypoxemic, hypercapnic respiratory failure. 2. Morbid obesity. Body mass index greater than 44 with obstructive apnea. 3. Pneumonia, bibasilar atelectasis. 4. Suspect diastolic dysfunction with volume overload and anasarca which is improving with diuresis. 5. Chronic obstructive pulmonary disease, hypoventilation syndrome. Continue BiPAP at bedtime and continue diuretics. He has been ambulating which is encouraging. REVIEW OF HIS ORDERS: He is on Lipitor 40 mg at bedtime, Norvasc 5 mg a day, aspirin 81 mg a day, Lasix 40 mg IV q.12, losartan 100 mg p.o. daily, Prilosec 20 mg daily. I am going to add milk of magnesia daily and see if we can get his bowels to move. I may give him lactulose as well 15 mL twice a day. Physical Therapy and Occupational Therapy are already involved. cc: Michael Scott MD
[2019-09-04] MEDS: MILK OF MAGNESIA PO SCH (11:03)
--- NOTE | 2019-09-04 15:57 | Diag Imaging Result Doc PS360 ---
EXAM: CHEST-2 VIEWS HISTORY: abnormal exam TECHNIQUE: Five views COMPARISON: 09/03/2019 FINDINGS: There is basilar atelectasis versus small infiltrates. The heart is mildly enlarged. The vessels are not distended. No consolidation. No pleural effusions. IMPRESSION: No interval improvement Electronically signed by Eber Ayala 09/04/2019 3:55 PM
--- NOTE | 2019-09-04 18:13 | PULMONOLOGY PROGRESS NOTE ---
DATE: 09/04/2019 SUBJECTIVE: The patient is awake and alert. He reports his breathing has improved. OBJECTIVE: Vital Signs: The patient has been afebrile for the last 24 hours. Blood pressure 124/59, heart rate 84, respiratory rate 20, oxygen saturation 100% on Venturi mask. HEENT: Pupils are equal and reactive. Oropharynx appears clear. Neck: Supple. Chest: Reveals prolonged expiratory phase with occasional rhonchi. Cardiac: S1-S2. Abdomen: Is obese and soft. Extremities: Reveal 1+ peripheral edema. IMPRESSION: A 59-year-old with 1. Acute on chronic hypoxemic and hypercapnic respiratory failure. 2. Bibasilar pneumonia. 3. Morbid obesity with a body mass index greater than 40. 4. Chronic obstructive pulmonary disease exacerbation. PLAN: 1. Continue BiPAP at bedtime and p.r.n. 2. Continue current diuresis. 3. Continue current bronchodilators. 4. Nocturnal BiPAP. cc: Abhinav Carlson MD
[2019-09-04] MEDS: LIPITOR PO SCH (21:34)
[2019-09-05] MEDS: DUONEB (A & A) INH SCH ×6 (03:39→23:23)
[2019-09-05] MEDS: NITROGLYCERIN TOP SCH ×4 (04:03→22:49)
[2019-09-05] MEDS: HUMALOG SUBQ SCH ×4 (06:12→21:39)
[2019-09-05] MEDS: PRILOSEC PO SCH (06:17)
[2019-09-05] MEDS: VENTOLIN HFA INH SCH (07:58)
[2019-09-05] MEDS: ASPIRIN EC PO SCH (09:10)
[2019-09-05] MEDS: MILK OF MAGNESIA PO SCH (09:11)
[2019-09-05] MEDS: NORVASC PO SCH (09:11)
[2019-09-05] MEDS: COZAAR PO SCH (09:11)
[2019-09-05] MEDS: LOVENOX SUBQ SCH (09:11)
[2019-09-05] MEDS: LASIX IV SCH ×2 (09:11→21:38)
[2019-09-05] MEDS: LANTUS INSULIN SUBQ SCH (09:11)
--- NOTE | 2019-09-05 13:16 | PROGRESS NOTE ---
DATE: 09/05/2019 SUBJECTIVE: Mr. Chadwick had a good night, is breathing much better. He feels like he would be ready go home tomorrow. OBJECTIVE: Vital signs: He remains afebrile with temperature 97.5 degrees, pulse 84, respirations 18, blood pressure 132/55. HEENT: Pupils are equal and round. Lungs: Clear in all lung regalado. Cardiovascular: Regular rate and rhythm without murmur or S3. Abdomen: Soft. Skin: Skin is warm and dry. ASSESSMENT AND PLAN: 1. Acute on chronic hypoxemic hypercapnic respiratory failure. 2. Bibasilar pneumonia. 3. Morbid obesity. Body mass greater than 40. 4. Chronic obstructive pulmonary disease exacerbation. 5. Suspect diastolic dysfunction with some volume overload. 6. He is definitely improved. I think his would like to take him home tomorrow. He has oxygen at home already. Looking over his orders, I do not see any change. We still have him on Lasix 40 mg IV q.12h, and we will pursue going home tomorrow with the help of home health. Blood sugars last four were 191, 314, 140 and 209. Creatinine was 1.1 yesterday. cc: Michael Scott MD
--- NOTE | 2019-09-05 18:05 | PULMONOLOGY PROGRESS NOTE ---
DATE: 09/05/2019 SUBJECTIVE: The patient is awake, alert and conversant. He has been sitting in the bedside chair. He reports he feels well. His shortness of breath continues to decline. OBJECTIVE: Vital Signs: The patient has been afebrile for the last 24 hours. Blood pressure 132/55, heart rate 84, respiratory rate 18, oxygen saturation 93% on nasal cannula. HEENT: Pupils are equal and reactive. Oropharynx appears clear. Neck: Supple. Chest: Reveals crackles in both lung bases. Cardiac: S1-S2. Abdomen: Soft. Extremities: Reveal decreasing edema. LABORATORIES: No laboratories today. IMPRESSION: A 59-year-old with 1. Acute on chronic hypoxemic respiratory failure. 2. Acute on chronic hypercapnic respiratory failure. 3. Mild bibasilar pneumonia. 4. Morbid obesity with body mass index greater than 40. 5. Chronic obstructive pulmonary disease exacerbation. PLAN: 1. Continue BiPAP/CPAP at bedtime and p.r.n. 2. Continue current diuresis. 3. Continue to observe off antibiotics, given clinical improvement. 4. Follow up chest x-ray tomorrow. He continues to improve and is approaching discharge. cc: Abhinav Carlson MD
[2019-09-05] MEDS: LIPITOR PO SCH (21:38)
[2019-09-06] MEDS: DUONEB (A & A) INH SCH ×3 (03:45→11:39)
[2019-09-06] MEDS: NITROGLYCERIN TOP SCH ×2 (04:45→11:57)
[2019-09-06] MEDS: HUMALOG SUBQ SCH ×2 (06:38→11:57)
[2019-09-06] MEDS: PRILOSEC PO SCH (06:38)
[2019-09-06 08:52] LABS: BASO# 0.02 X1000 (0.0-0.2); BASO% 0.3 % (0.0-0.8); EOS% 3.8 % (0.0-10.0); HEMATOCRIT 41.2 % (42.0-52.0); IMM GRAN# 0.02 X1000 (0.0-0.04); IMM GRAN% 0.3 % (0.0-0.5); LYMPH% 28.1 % (20.5-51.1); MCHC 29.1 g/dL (33-37); MCV 89.2 FL (81-99); MONO% 11.5 % (1.7-9.3); MPV 10.6 FL (7.4-10.4); PLT 248 X1000 (130-400); RBC 4.62 XMIL (4.7-6.1); RDW 13.9 % (11.5-14.5); WBC 7.84 X1000 (4.8-10.8)
[2019-09-06] MEDS: VENTOLIN HFA INH SCH (09:10)
[2019-09-06 09:22] LABS: AGAP 8; ALB/GLOB RATIO 1.1; ALBUMIN 3.7 g/dL (3.5-5.0); ALKALINE PHOSPHATASE 51 U/L (32-122); BUN 22 mg/dL (8-22); CHLORIDE 96 mmol/L (98-107); COSMO 285; ESTIMATED GFR > 60; GLUCOSE 181 mg/dL (70-104); GOT 14 U/L (10-34); GPT 11 U/L (10-44); MAGNESIUM 2.1 mg/dL (1.5-2.7); POTASSIUM 4.5 mmol/L (3.5-5.1); SODIUM 139 mmol/L (136-145); TCO2 35 mmol/L (25-35)
[2019-09-06] MEDS: ASPIRIN EC PO SCH (09:26)
[2019-09-06] MEDS: COZAAR PO SCH (09:27)
[2019-09-06] MEDS: LASIX IV SCH (09:27)
[2019-09-06] MEDS: LOVENOX SUBQ SCH (09:27)
[2019-09-06] MEDS: MILK OF MAGNESIA PO SCH (09:27)
[2019-09-06] MEDS: NORVASC PO SCH (09:27)
[2019-09-06] MEDS: LANTUS INSULIN SUBQ SCH (09:30)
--- NOTE | 2019-09-06 09:58 | Diag Imaging Result Doc PS360 ---
CHEST-2 VIEWS - 09/06/2019 INDICATION: RESP failure COMPARISON: 09/04/2019 FINDINGS: There has been improvement in aeration of the right lower lobe with better visualization of the right hemidiaphragm. Otherwise, there is some persistent scattered linear atelectasis or infiltrate bilaterally. No new infiltrates. Stable cardiomegaly and pulmonary vascular congestion. IMPRESSION: Slight improved aeration of the right lower lobe. Electronically signed by Sanjay Moreno 09/06/2019 9:56 AM
[2019-09-06 11:51] VITALS: BP 129/54
--- NOTE | 2019-09-06 13:50 | DISCHARGE SUMMARY ---
ADMISSION DATE: 08/28/2019 DISCHARGE DATE: 09/06/2019 HISTORY OF PRESENT ILLNESS: His doctor is Dee Figueroa in [place]. He came in with chest pain on 08/28/2019, shortness of breath for the last 2 or 3 days. A 59-year-old, white male with a history of COPD, on home O2, presumed diastolic dysfunction, sleep apnea, hypertension, heart disease, diabetes mellitus type 2. Presented to the hospital because of retrosternal dull, sharp pain, nonradiating, and additional anginal equivalent. He said he had just walked to his car and came back when the pain came on. Brought in by ambulance. Got to the emergency room and it subsequently resolved. He complains of a 2-day history of shortness of breath with exertion. Noticed he had become more swollen. Tends to sleep mainly in the recliner. He denies any orthopnea, paroxysmal nocturnal dyspnea. He also had worsening cough which was dry. No fever or chills. On arrival to the hospital, O2 saturations were in the 80s. HOSPITAL COURSE: Admitted with acute diastolic heart failure, hypertensive heart disease, diabetes mellitus type 2, obstructive sleep apnea, morbid obesity, and chronic obstructive pulmonary disease, on O2 at home. He also had a CPAP at home. Possible right adhesive capsulitis. He was complaining of his right shoulder. We diuresed him. Echocardiogram was done. This was done on 08/28/2019, technically suboptimal study. Poor acoustic window. Aortic valve leaflets not well visualized. His peak velocity across the aortic valve was 2 m/sec. There was no aortic stenosis or regurgitation. There was trace mitral and trace tricuspid regurgitation. Could not comment on diastolic dysfunction. Normal left cavity size. Estimated ejection fraction of 65%. Head CT without contrast, no evidence of acute intracranial disease. Shoulder x-ray on 08/28/2019, no evidence of acute bony abnormality. That was on the right shoulder. Cardiology was asked to see as the patient had pickwickian syndrome, sleep apnea, hypertension, morbid obesity. He has no sign of myocardial ischemia or myocardial infarction, so we will continue to diurese. He required BiPAP and at times was very lethargic. We watched his blood sugars while he was here. Managed his blood pressure and afterload. Orthopedic evaluated and felt like he had adhesive capsulitis in the right shoulder and possible bursitis of that shoulder. Overall, he showed steady improvement. He diuresed well. Pulmonary was asked to see. They felt he had acute on chronic hypoxemic, hypercapnic respiratory failure, right lower lobe atelectasis versus pneumonia, left lower lobe atelectasis, morbid obesity with pickwickian syndrome, obstructive sleep apnea, and chronic pulmonary disease exacerbation. [place] he had likely acute diastolic congestive heart failure exacerbation. He had a mild elevation in troponin. He showed steady improvement with diuresis. Chest x-ray on 09/06/2019, slight improvement in aeration of the right lower lobe. Clinically, he was better, able to eat, sitting up in a chair. He has oxygen at home and he has a CPAP at home. They were wanting to go home so we will plan to discharge on 09/06/2019. He will be on Norvasc 5 mg a day, aspirin 81 mg a day, Lipitor 40 mg a day, Lasix, he will take 40 mg p.o. twice a day, Lantus insulin 40 units subcutaneous daily, Cozaar 100 mg daily, Prilosec 20 mg a day. Encouraged to wear his CPAP and his O2 at 2 L per nasal cannula. cc: Michael Scott MD
== END 2019-09-06 15:07 | disposition home health service (06) | DRG 291 ==
LOC: SUPCPDRO → ED 16:43 → 3N 21:29 → SUATTDRO 21:29 → 3N 22:10
PROVIDERS: ATTEND Emergency Medicine